=== PATIENT | male | born 1970 | race Caucasian/White ===

== ENCOUNTER 2017-11-30 12:15 | Outpatient (RCR) | payer BC, SELFPAY ==
[2017-11-19 10:55] LABS: Absolute Lymphocyte Count 2.17 X10^3/ul (0.83-4.51); Absolute Neutrophil Count 0.4 X10^3/uL (2.0-7.7); Eosinophil# 0.01 X10^3/uL; Eosinophils% 0.4 % (0-5); Hemoglobin 8.1 g/dl (13.0-16.5); Lymphocyte # 2.17 X10^3/ul (4.0); Lymphocyte % 82.5 % (19-41); Mean Corp Hgb Conc 35.2 g/gl (32-36); Mean Corpuscular Hgb 34.3 pg (27.0-32.0); Mean Corpuscular Volume 97.5 fL (80-94); Mean Platelet Vol. 7.4 fl (6.2-12.0); Monocyte# 0.07 X10^3/uL; Monocyte% 2.7 % (0-10); Neutrophil # 0.38 X10^3/uL (2.7-7.7); Neutrophil % 14.4 % (47-70); RBC Distribution Width CV 16.3 % (11.6-14.6); RBC Distribution Width SD 56.4 fl (35.1-43.9); Red Blood Count 2.36 M/mm3 (4.6-6.2); White Blood Count 2.6 K/mm3 (4.4-11.0)
[2017-11-19 10:56] LABS: Differential Indicated SCAN CRITERIA MET; POSITIVE COUNT YES; POSITIVE DIFFERENTIAL YES; POSITIVE MORPHOLOGY NO
[2017-11-19 11:06] LABS: Platelet Count 7 K/mm3 (150-450)
[2017-11-19 11:51] LABS: Differential Comment SCANNED
[2017-11-30 15:01] LABS: Absolute Lymphocyte Count 1.68 X10^3/ul (0.83-4.51); Absolute Neutrophil Count 0.2 X10^3/uL (2.0-7.7); Differential Indicated SCAN CRITERIA MET; Eosinophil# 0.01 X10^3/uL; Eosinophils% 0.5 % (0-5); Hematocrit 18.8 % (40-54); Hemoglobin 6.6 g/dl (13.0-16.5); Lymphocyte # 1.68 X10^3/ul (4.0); Lymphocyte % 88.4 % (19-41); Mean Corp Hgb Conc 35.1 g/gl (32-36); Mean Corpuscular Hgb 34.2 pg (27.0-32.0); Mean Corpuscular Volume 97.4 fL (80-94); Monocyte# 0.04 X10^3/uL; Monocyte% 2.1 % (0-10); Neutrophil # 0.17 X10^3/uL (2.7-7.7); POSITIVE COUNT YES; POSITIVE DIFFERENTIAL YES; POSITIVE MORPHOLOGY NO; Platelet Count 8 K/mm3 (150-450); RBC Distribution Width CV 15.2 % (11.6-14.6); RBC Distribution Width SD 50.6 fl (35.1-43.9); Red Blood Count 1.93 M/mm3 (4.6-6.2); White Blood Count 1.9 K/mm3 (4.4-11.0)
[2017-12-01 10:39] LABS: Pathologist Review Reviewed
== END 2017-11-30 12:16 | disposition home or self-care (01) ==
LOC: LAB 12:15
PROVIDERS: Family Provider Family Medicine; PCP Family Medicine
DX: D61.818 Other pancytopenia (principal); Z79.899 Other long term (current) drug therapy
CPT/HCPCS: 36415; 85025

== ENCOUNTER 2017-12-04 12:26 | Emergency (ER) | payer BC, SELFPAY ==
[2017-11-11 16:41] VITALS: BP 154/83
[2017-12-01 17:28] VITALS: BP 137/65
[2017-12-04] VITALS (7 sets, daily range): BP systolic 141–174; BP diastolic 88–101; PULSE 83–110; RESP 16–18; TEMP 36.3–36.8; O2SAT 96–98; BMI 33.9
[2017-12-04 13:07] LABS: Absolute Lymphocyte Count 1.74 X10^3/ul (0.83-4.51); Absolute Neutrophil Count 0.2 X10^3/uL (2.0-7.7); Hematocrit 24.1 % (40-54); Hemoglobin 8.7 g/dl (13.0-16.5); Lymphocyte # 1.74 X10^3/ul (4.0); Lymphocyte % 90.6 % (19-41); Mean Corp Hgb Conc 36.1 g/gl (32-36); Mean Corpuscular Hgb 32.3 pg (27.0-32.0); Mean Corpuscular Volume 89.6 fL (80-94); Mean Platelet Vol. 10.8 fl (6.2-12.0); Monocyte# 0.03 X10^3/uL; Monocyte% 1.6 % (0-10); Neutrophil # 0.15 X10^3/uL (2.7-7.7); Neutrophil % 7.8 % (47-70); RBC Distribution Width CV 16.9 % (11.6-14.6); RBC Distribution Width SD 54.1 fl (35.1-43.9); Red Blood Count 2.69 M/mm3 (4.6-6.2); White Blood Count 1.9 K/mm3 (4.4-11.0)
[2017-12-04 13:09] LABS: Differential Indicated SCAN CRITERIA MET; POSITIVE COUNT YES; POSITIVE DIFFERENTIAL YES; POSITIVE MORPHOLOGY NO; Platelet Count 10 K/mm3 (150-450)
[2017-12-04 13:55] LABS: Differential Comment SCAN; Platelet Estimate MKD DEC (ADEQ)
[2017-12-04] MEDS: AMOXICILLIN 500 MG CAPSULE PO (14:04)
[2017-12-04] MEDS: Mixture 30 ML Bottle 20 ML TOPICAL (14:05)
--- NOTE | 2017-12-04 15:19 | ED.RN ---
PT NOTIFIED AWAITING PLATELET ARRIVAL FROM ANOTHER HOSPITAL. MADE PT AWARE WAIT COULD TAKE ANOTHER TWO HRS OR SO FOR PLATELETS TO ARRIVE
--- NOTE | 2017-12-04 16:20 | ED.VISSUMM ---
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 He denies any hematuria, hematemesis, melena hematochezia. He denies bruising easily. He denies petechiae. He has never had a prior nosebleed. He has no other complaints and specifically headache, visual, ocular or auditory. Physical Examination: Patient's vitals are noted. He is a pleasant middle-aged gentleman in no distress. HEENT is remarkable for epistaxis right side. Uvula is midline. Posterior pharynx unremarkable. Trachea midline. There is no stridor. Heart is regular without murmur, gallop or rub. S1 and S2 are normal. Lungs are clear to auscultation with good movement of air bilaterally. Abdomen soft nontender. Patient does have petechial lower extremity; however, he has had petechia on prior exams. Test Results: White count is 1.9 thousand with an absolute neutrophil count of approximately 150. Hemoglobin is 8.7, which is baseline. Platelet count is 10,000 which is a drop from yesterday. Emergency Department Course and Treatment: Platelets were ordered. Patient was informed he would take 4-5 hours for arrival. The right naris was anesthetized with [place] solution. It was determined that he has an anterior nosebleed. A 5.5 cm anterior Rhino Rocket was placed with good hemostasis. At the time of this dictation 1620s had no bleeding since placement of the Rhino Rocket. He will receive amoxicillin in the department and a prescription for amoxicillin. He was referred to Dr. Bhardwaj for ENT. Treatment Plan: Platelet transfusion, Rhino Rocket to control epistaxis and referral to ENT Disposition: Discharged to home after transfusion of platelets Impression: 1. Epistaxis right acute 2. Pancytopenia with platelet count of 10,000 This note was generated with [employer] dictation software. It may contain incorrect words, spelling, and punctuation that were not noted in review of the chart prior to signing ED Disposition - Plan for ED Patient: Disposition: Home or Assisted Living Chief Complaint: Nosebleed Instructions: Nosebleed Prescriptions: Amoxicillin [Amoxil] 500 mg PO Q8H #14 cap Referrals: Ramon Calzada MD [Primary Care Provider] - Efrain Gr MD [STAFF PHYSICIAN] - 3-5 Days
--- NOTE | 2017-12-04 16:25 | ED.DCSUM_ITS ---
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 He denies any hematuria, hematemesis, melena hematochezia. He denies bruising easily. He denies petechiae. He has never had a prior nosebleed. He has no other complaints and specifically headache, visual, ocular or auditory. Physical Examination: Patient's vitals are noted. He is a pleasant middle-aged gentleman in no distress. HEENT is remarkable for epistaxis right side. Uvula is midline. Posterior pharynx unremarkable. Trachea midline. There is no stridor. Heart is regular without murmur, gallop or rub. S1 and S2 are normal. Lungs are clear to auscultation with good movement of air bilaterally. Abdomen soft nontender. Patient does have petechial lower extremity; however , he has had petechia on prior exams. Test Results: White count is 1.9 thousand with an absolute neutrophil count of approximately 150. Hemoglobin is 8.7, which is baseline. Platelet count is 10, 000 which is a drop from yesterday. Emergency Department Course and Treatment: Platelets were ordered. Patient was informed he would take 4-5 hours for arrival. The right naris was anesthetized with [place] solution. It was determined that he has an anterior nosebleed. A 5.5 cm anterior Rhino Rocket was placed with good hemostasis. At the time of this dictation 1620s had no bleeding since placement of the Rhino Rocket. He will receive amoxicillin in the department and a prescription for amoxicillin. He was referred to Dr. Bhardwaj for ENT. Treatment Plan: Platelet transfusion, Rhino Rocket to control epistaxis and referral to ENT Disposition: Discharged to home after transfusion of platelets Impression: 1. Epistaxis right acute 2. Pancytopenia with platelet count of 10,000 This note was generated with [employer] dictation software. It may contain incorrect words, spelling, and punctuation that were not noted in review of the chart prior to signing ED Disposition - Plan for ED Patient: Disposition: Home or Assisted Living Chief Complaint: Nosebleed Instructions: Nosebleed Prescriptions: Amoxicillin [Amoxil] 500 mg PO Q8H #14 cap Referrals: Ramon Calzada MD [Primary Care Provider] - Efrain Gr MD [STAFF PHYSICIAN] - 3-5 Days
[2017-12-04] MEDS: DiphenhydrAMINE 25 MG Capsule PO (17:04)
[2017-12-04] MEDS: Famotidine 20 MG Tablet PO (17:04)
[2017-12-06 15:07] LABS: Pathologist Review Reviewed
== END 2017-12-04 18:50 | disposition home or self-care (01) ==
PROVIDERS: Emergency Provider Emergency Medicine; Family Provider Family Medicine; PCP Family Medicine
DX: R04.0 Epistaxis (principal); D61.818 Other pancytopenia
CPT/HCPCS: 30901; 85025; 86900; 86965; 99284; P9037; A4216

== ENCOUNTER 2017-12-16 13:17 | Outpatient (RCR) | payer BC, SELFPAY ==
[2017-11-11 16:41] VITALS: BP 154/83
[2017-12-01 17:28] VITALS: BP 137/65
[2017-12-03 12:49] LABS: Absolute Lymphocyte Count 1.52 X10^3/ul (0.83-4.51); Absolute Neutrophil Count 0.2 X10^3/uL (2.0-7.7); Eosinophil# 0.01 X10^3/uL; Eosinophils% 0.6 % (0-5); Hematocrit 22.7 % (40-54); Lymphocyte # 1.52 X10^3/ul (4.0); Lymphocyte % 84.4 % (19-41); Mean Corp Hgb Conc 35.2 g/gl (32-36); Mean Corpuscular Hgb 32.3 pg (27.0-32.0); Mean Corpuscular Volume 91.5 fL (80-94); Mean Platelet Vol. 11.4 fl (6.2-12.0); Monocyte# 0.04 X10^3/uL; Monocyte% 2.2 % (0-10); Neutrophil # 0.23 X10^3/uL (2.7-7.7); Neutrophil % 12.8 % (47-70); RBC Distribution Width CV 16.8 % (11.6-14.6); RBC Distribution Width SD 53.4 fl (35.1-43.9); Red Blood Count 2.48 M/mm3 (4.6-6.2); White Blood Count 1.8 K/mm3 (4.4-11.0)
[2017-12-03 13:05] LABS: Differential Indicated SCAN CRITERIA MET; POSITIVE COUNT YES; POSITIVE DIFFERENTIAL YES; POSITIVE MORPHOLOGY NO; Platelet Count 16 K/mm3 (150-450)
[2017-12-03 13:28] LABS: Hypochromasia 2+; Platelet Estimate MKD DEC (ADEQ)
[2017-12-06 15:01] LABS: Pathologist Review Reviewed
[2017-12-06 16:32] LABS: Absolute Neutrophil Count 0.1 X10^3/uL (2.0-7.7); Eosinophil# 0.01 X10^3/uL; Eosinophils% 0.4 % (0-5); Hematocrit 22.3 % (40-54); Hemoglobin 7.9 g/dl (13.0-16.5); Lymphocyte % 90.5 % (19-41); Mean Corp Hgb Conc 35.4 g/gl (32-36); Mean Corpuscular Hgb 32.1 pg (27.0-32.0); Mean Corpuscular Volume 90.7 fL (80-94); Mean Platelet Vol. 9.3 fl (6.2-12.0); Monocyte# 0.08 X10^3/uL; Monocyte% 3.3 % (0-10); Neutrophil # 0.14 X10^3/uL (2.7-7.7); Neutrophil % 5.8 % (47-70); RBC Distribution Width CV 16.5 % (11.6-14.6); RBC Distribution Width SD 53.7 fl (35.1-43.9); Red Blood Count 2.46 M/mm3 (4.6-6.2); White Blood Count 2.4 K/mm3 (4.4-11.0)
[2017-12-06 16:35] LABS: Differential Indicated SCAN CRITERIA MET; POSITIVE COUNT YES; POSITIVE DIFFERENTIAL YES; POSITIVE MORPHOLOGY NO
[2017-12-06 16:43] LABS: Platelet Count 22 K/mm3 (150-450)
[2017-12-06 17:08] LABS: Differential Comment SCANNED
[2017-12-07 14:51] LABS: Pathologist Review Reviewed
[2017-12-08 11:19] LABS: Absolute Lymphocyte Count 1.77 X10^3/ul (0.83-4.51); Absolute Neutrophil Count 0.1 X10^3/uL (2.0-7.7); Eosinophil# 0.01 X10^3/uL; Eosinophils% 0.5 % (0-5); Hematocrit 20.4 % (40-54); Hemoglobin 7.1 g/dl (13.0-16.5); Lymphocyte # 1.77 X10^3/ul (4.0); Lymphocyte % 90.8 % (19-41); Mean Corp Hgb Conc 34.8 g/gl (32-36); Mean Corpuscular Hgb 32.1 pg (27.0-32.0); Mean Corpuscular Volume 92.3 fL (80-94); Mean Platelet Vol. 8.9 fl (6.2-12.0); Monocyte# 0.04 X10^3/uL; Monocyte% 2.1 % (0-10); Neutrophil # 0.13 X10^3/uL (2.7-7.7); Neutrophil % 6.6 % (47-70); Platelet Count 12 K/mm3 (150-450); RBC Distribution Width CV 15.7 % (11.6-14.6); Red Blood Count 2.21 M/mm3 (4.6-6.2)
[2017-12-08 11:46] LABS: Differential Indicated SCAN CRITERIA MET; POSITIVE COUNT YES; POSITIVE DIFFERENTIAL YES; POSITIVE MORPHOLOGY NO
[2017-12-08 11:48] LABS: Anisocytosis 1+; Platelet Estimate MOD DEC (ADEQ)
[2017-12-09 09:45] LABS: Pathologist Review Reviewed
[2017-12-11 10:42] LABS: Absolute Lymphocyte Count 1.25 X10^3/ul (0.83-4.51); Absolute Neutrophil Count 0.2 X10^3/uL (2.0-7.7); Eosinophil# 0.01 X10^3/uL; Eosinophils% 0.7 % (0-5); Hematocrit 24.1 % (40-54); Hemoglobin 8.5 g/dl (13.0-16.5); Lymphocyte # 1.25 X10^3/ul (4.0); Mean Corp Hgb Conc 35.3 g/gl (32-36); Mean Corpuscular Hgb 31.3 pg (27.0-32.0); Mean Corpuscular Volume 88.6 fL (80-94); Mean Platelet Vol. 8.9 fl (6.2-12.0); Monocyte# 0.03 X10^3/uL; Neutrophil # 0.18 X10^3/uL (2.7-7.7); Neutrophil % 12.3 % (47-70); Platelet Count 13 K/mm3 (150-450); RBC Distribution Width SD 50.1 fl (35.1-43.9); Red Blood Count 2.72 M/mm3 (4.6-6.2); White Blood Count 1.5 K/mm3 (4.4-11.0)
[2017-12-11 10:43] LABS: Differential Indicated SCAN CRITERIA MET; POSITIVE COUNT YES; POSITIVE DIFFERENTIAL YES; POSITIVE MORPHOLOGY NO
[2017-12-13 09:49] LABS: Absolute Lymphocyte Count 1.76 X10^3/ul (0.83-4.51); Absolute Neutrophil Count 0.1 X10^3/uL (2.0-7.7); Eosinophil# 0.01 X10^3/uL; Eosinophils% 0.5 % (0-5); Hematocrit 23.9 % (40-54); Hemoglobin 8.4 g/dl (13.0-16.5); Lymphocyte # 1.76 X10^3/ul (4.0); Lymphocyte % 94.6 % (19-41); Mean Corp Hgb Conc 35.1 g/gl (32-36); Mean Corpuscular Hgb 31.3 pg (27.0-32.0); Mean Corpuscular Volume 89.2 fL (80-94); Mean Platelet Vol. 8.6 fl (6.2-12.0); Monocyte# 0.04 X10^3/uL; Monocyte% 2.2 % (0-10); Neutrophil # 0.05 X10^3/uL (2.7-7.7); Neutrophil % 2.7 % (47-70); Platelet Count 6 K/mm3 (150-450); RBC Distribution Width CV 15.4 % (11.6-14.6); Red Blood Count 2.68 M/mm3 (4.6-6.2); White Blood Count 1.9 K/mm3 (4.4-11.0)
[2017-12-13 10:09] LABS: Differential Indicated SCAN CRITERIA MET; POSITIVE COUNT YES; POSITIVE DIFFERENTIAL YES; POSITIVE MORPHOLOGY NO
[2017-12-14 09:57] LABS: Pathologist Review Reviewed
[2017-12-14 10:07] LABS: Pathologist Review Reviewed
[2017-12-16 13:40] LABS: Absolute Neutrophil Count 0.1 X10^3/uL (2.0-7.7); Eosinophil# 0.01 X10^3/uL; Eosinophils% 0.4 % (0-5); Hematocrit 22.1 % (40-54); Hemoglobin 7.8 g/dl (13.0-16.5); Lymphocyte % 94.2 % (19-41); Mean Corp Hgb Conc 35.3 g/gl (32-36); Mean Corpuscular Hgb 31.6 pg (27.0-32.0); Mean Corpuscular Volume 89.5 fL (80-94); Monocyte# 0.03 X10^3/uL; Monocyte% 1.3 % (0-10); Neutrophil # 0.09 X10^3/uL (2.7-7.7); Neutrophil % 4.1 % (47-70); RBC Distribution Width CV 14.6 % (11.6-14.6); RBC Distribution Width SD 45.1 fl (35.1-43.9); Red Blood Count 2.47 M/mm3 (4.6-6.2); White Blood Count 2.2 K/mm3 (4.4-11.0)
[2017-12-16 13:58] LABS: POSITIVE COUNT YES; POSITIVE DIFFERENTIAL YES; POSITIVE MORPHOLOGY NO; Platelet Count 20 K/mm3 (150-450)
[2017-12-16 13:59] LABS: Differential Indicated SCAN CRITERIA MET
[2017-12-16 14:00] LABS: Differential Comment SCANNED
[2017-12-17 10:15] LABS: Pathologist Review Reviewed
== END 2017-12-16 14:00 | disposition home or self-care (01) ==
LOC: LAB 13:17
PROVIDERS: Family Provider Family Medicine; PCP Family Medicine
DX: D61.9 Aplastic anemia, unspecified (principal)
CPT/HCPCS: 36415; 85025; 86900

== ENCOUNTER 2018-01-28 04:44 | Emergency (ER) | payer BC, SELFPAY ==
[2018-01-28 04:45] VITALS: BP 170/88; PULSE 131; RESP 20; TEMP 37.2; O2SAT 97; BMI 31.1
--- NOTE | 2018-01-28 05:09 | EKG12_ITS ---
Test Reason : Blood Pressure : / mmHG Vent. Rate : 118 BPM Atrial Rate : 118 BPM P-R Int : 138 ms QRS Dur : 092 ms QT Int : 300 ms P-R-T Axes : 061 052 -37 degrees QTc Int : 420 ms Sinus tachycardia T wave abnormality, consider inferolateral ischemia Abnormal ECG Confirmed by IRAIS ESCOBAR, SHANTELL ([id number]), editor index GEOVANI HAMPTON ([id number]) on 01/31/2018 1:26:23 PM Referred By: TIFFANI Confirmed By:SHANTELL BRAXTON MD
--- NOTE | 2018-01-28 05:09 | CT_ITS ---
STUDY: CT ABDOMEN AND PELVIS WITH CONTRAST REASON FOR EXAM: Male, 47 years old. Abdominal pain shooting into the tailbone. Back pain. Recent diagnosis of aplastic anemia. Patient has had injections over the last 5 days. RADIATION DOSAGE (If Supplied By Facility): CTDIvol = ( 19.68 ) mGy, DLP = ( 1274.06 ) mGycm TECHNIQUE: Transaxial images were obtained from the dome of the diaphragm to the symphysis pubis without oral contrast. 100ML ml of Isovue 300 contrast was administered. Sagittal and coronal images were reconstructed. Individualized dose optimization techniques were used for this CT. COMPARISON: None. FINDINGS: The visualized lung bases are unremarkable. The visualized portions of the heart are within normal limits. As seen on axial images 49-52, there is a 1.7 cm low attenuation space occupying lesion in the right lobe of the liver. There is some peripheral puddling contrast enhancement and this most likely represents benign hemangioma. Normal gallbladder and extrahepatic biliary system. There is mild splenomegaly. Normal pancreas. Normal bilateral adrenal glands. Normal right kidney. Normal left kidney. Normal visualized stomach. Normal small intestine. A diverticulum is seen arising from the proximal transverse colon. Otherwise normal. Colon with no evidence for acute diverticulitis.. The appendix is visualized on axial images 70-79 and it appears normal.. There is atherosclerotic calcification of the abdominal aorta, without a demonstrated aneurysm. Normal inferior vena cava. Normal retroperitoneum. Normal urinary bladder. There is an umbilical hernia and there is a small right inguinal hernia which contains fat, but no bowel. There are multilevel degenerative changes of the visualized lumbar spine. CT/Abdomen/Pelvis W IV Cont ONLY IMPRESSION: Mild splenomegaly. Mild atherosclerosis. Minimal colonic diverticulosis, without evidence for acute diverticulitis. 1.7 cm hemangioma in the right lobe of the liver. No evidence for acute pathology. Electronically Signed: New Lay MD at 6:28 EDT , Service support ,
[2018-01-28] MEDS: 0.9% Normal Saline 1,000 ML 1000 ML IV (05:19)
[2018-01-28] MEDS: Ondansetron 4 MG/2 ML Vial IV ×2 (05:20→08:30)
[2018-01-28] MEDS: Morphine 4 MG/ML Syringe IV ×3 (05:21→08:30)
[2018-01-28 05:22] LABS: Absolute Lymphocyte Count 0.99 X10^3/ul (0.83-4.51); Basophil# 0.04 X10^3/uL; Basophil% 3.8 % (0-1); Hematocrit 22.3 % (40-54); Hemoglobin 7.9 g/dl (13.0-16.5); Lymphocyte # 0.99 X10^3/ul (4.0); Lymphocyte % 95.2 % (19-41); Mean Corp Hgb Conc 35.4 g/gl (32-36); Mean Corpuscular Hgb 30.6 pg (27.0-32.0); Mean Corpuscular Volume 86.4 fL (80-94); Mean Platelet Vol. 10.7 fl (6.2-12.0); Monocyte# 0.01 X10^3/uL; RBC Distribution Width CV 12.3 % (11.6-14.6); RBC Distribution Width SD 37.2 fl (35.1-43.9); Red Blood Count 2.58 M/mm3 (4.6-6.2)
[2018-01-28 05:23] LABS: Differential Indicated SCAN CRITERIA MET; POSITIVE COUNT YES; POSITIVE DIFFERENTIAL YES; POSITIVE MORPHOLOGY YES
[2018-01-28 05:24] LABS: Bacteria 0 SEEN /hpf (None Seen); Squamous Epithelial Cells - UA 0 SEEN /hpf (0-5)
[2018-01-28 05:24] LABS: International Normalized Ratio 1.1; Prothrombin Time (Protime)PT. 13.8 SECONDS (11.7-14.9)
[2018-01-28 05:25] LABS: Platelet Count 6 K/mm3 (150-450)
--- NOTE | 2018-01-28 05:26 | ED.RN ---
lab called with critical lab results. WBC 1.[address] Beyer made aware. no new orders at this time
[2018-01-28 05:27] LABS: Color, Urine Yellow (Yellow); Glucose, Dipstick Normal (Normal); Ketone-Dipstick 5 mg/dl (Negative); Leukocyte Esterase-Dipstick 25 /ul (Negative); Nitrite-Dipstick Negative (Negative); Occult Blood-Urine 25 /ul (Negative); Protein-Dipstick 30 mg/dl (Negative); Urine Clarity Sl. Cloudy (Clear); Urine Urobilinogen 4 mg/dl (Normal)
[2018-01-28 05:32] LABS: ALB/GLOB Ratio 0.7 RATIO (0.9-2.4); AST(SGOT) 12 U/L (15-37); Alanine Aminotransfer ALT/SGPT 62 U/L (16-61); Albumin, Serum 2.5 g/dL (3.2-5.0); Alkaline Phosphatase 62 U/L (45-117); Anion Gap 9 (5-15); BUN 17 mg/dL (7-18); BUN/Creat Ratio 27.3 RATIO (10-20); Calcium,Total 7.5 mg/dL (8.5-10.1); Chloride 102 mmol/L (98-107); Creatinine, Serum 0.62 mg/dL (0.70-1.30); EST Glomerular Filtration Rate 147 mL/min (>60); Est Glom Filt Rate - Afr Amer 177 mL/min (>60); Estimated Creatinine Clearance 161.67 ml/min; Globulin 3.5 g/dL (2.2-4.2); Glucose 124 mg/dL (74-106); Lipase 81 U/L (73-393); Potassium 3.7 mmol/L (3.5-5.1); Sodium Level 137 mmol/L (136-145)
--- NOTE | 2018-01-28 05:32 | RAD_ITS ---
STUDY: X-RAY CHEST REASON FOR EXAM: Male, 47 years old. Fever. History of aplastic anemia. TECHNIQUE: Frontal and lateral views of the chest. COMPARISON: 11/11/2017. FINDINGS: There is a right internal jugular central venous catheter with its tip overlying the superior vena cava. The lungs are clear and expanded. There is no demonstrated pleural abnormality. Normal size heart. Normal mediastinum and abdi. Normal visualized pulmonary arteries. Normal visualized aortic arch and descending thoracic aorta. There are mild degenerative changes of the visualized thoracic spine. Normal visualized ribs, clavicles, and shoulders. There is no demonstrated abnormality of the visualized soft tissue structures of the upper abdomen. RAD/Chest PA and Lateral IMPRESSION: Central line is in adequate position. No evidence for acute cardiopulmonary pathology. Electronically Signed: New Lay MD at 6:29 EDT , Service support ,
[2018-01-28 05:33] LABS: Hyaline Cast 0-5 SEEN /lpf (0-5); Mucous, Urine 3+ /hpf (<or=2+); Red Blood Cells-Urine 0-5 SEEN /hpf (0-5); Urine Bilirubin Dipstick 1 mg/dL (Negative); White Blood Cells 5-10 SEEN /hpf (0-5)
[2018-01-28 05:59] LABS: Differential Comment SCAN; Platelet Estimate MKD DEC (ADEQ)
--- NOTE | 2018-01-28 06:03 | ED.RN ---
lab called with critical lab results. lactic acid 2.0. Dr. Beyer made aware. no new orders at this time
--- NOTE | 2018-01-28 06:38 | ED.VISSUMM ---
- ER Visit Summary Date of Service: 01/28/18 Chief Complaint: Abdominal pain History of Present Illness: The patient is a 47 M with a history of aplastic anemia who presents with abdominal pain. He has been being treated at the [facility]. Last week he had ATG treatments for about 1 week. Today he began to develop some abdominal pain which is in the center of his abdomen and shoots towards his back and tailbone. He also had a fever of 101.7. He spoke to oncology and they were concerned about his fever and also the possibility of serum sickness so he was sent here to the emergency department for evaluation. Physical Examination: Heart rate 131 respiratory rate 20 afebrile Moist mucous membranes Heart regular rhythm tachycardia Lungs are clear Abdomen soft nondistended with diffuse nonfocal abdominal tenderness Test Results: EKG shows sinus rhythm at a rate of 118. He does have inferior and lateral T-wave inversions which are changed from prior. Chest x-ray shows no acute process. CT of the abdomen and pelvis shows no acute process. He is pancytopenic. Platelets 6. Absolute neutrophil count 0. Total bilirubin 1.1. Lactic 2.0. UA does show 5-10 WBCs. Emergency Department Course and Treatment: Patient has neutropenic fever. He was empirically treated with meropenem and vancomycin. He was given morphine for pain and Zofran for nausea. He will be transferred back to [facility] for further care. Treatment Plan: [] Disposition: Transfer Impression: Neutropenic fever Abdominal pain Aplastic anemia This note was generated with [employer] dictation software. It may contain incorrect words, spelling, and punctuation that were not noted in review of the chart prior to signing ED Disposition - Plan for ED Patient: Chief Complaint: Other, Pain/Inj Referrals: Ramon Calzada MD [Primary Care Provider] -
--- NOTE | 2018-01-28 06:41 | ED.DCSUM_ITS ---
- ER Visit Summary Date of Service: 01/28/18 Chief Complaint: Abdominal pain History of Present Illness: The patient is a 47 M with a history of aplastic anemia who presents with abdominal pain. He has been being treated at the [facility]. Last week he had ATG treatments for about 1 week. Today he began to develop some abdominal pain which is in the center of his abdomen and shoots towards his back and tailbone. He also had a fever of 101.7. He spoke to oncology and they were concerned about his fever and also the possibility of serum sickness so he was sent here to the emergency department for evaluation. Physical Examination: Heart rate 131 respiratory rate 20 afebrile Moist mucous membranes Heart regular rhythm tachycardia Lungs are clear Abdomen soft nondistended with diffuse nonfocal abdominal tenderness Test Results: EKG shows sinus rhythm at a rate of 118. He does have inferior and lateral T-wave inversions which are changed from prior. Chest x-ray shows no acute process. CT of the abdomen and pelvis shows no acute process. He is pancytopenic. Platelets 6. Absolute neutrophil count 0. Total bilirubin 1.1. Lactic 2.0. UA does show 5-10 WBCs. Emergency Department Course and Treatment: Patient has neutropenic fever. He was empirically treated with meropenem and vancomycin. He was given morphine for pain and Zofran for nausea. He will be transferred back to [facility] for further care. Treatment Plan: [] Disposition: Transfer Impression: Neutropenic fever Abdominal pain Aplastic anemia This note was generated with [employer] dictation software. It may contain incorrect words, spelling, and punctuation that were not noted in review of the chart prior to signing ED Disposition - Plan for ED Patient: Chief Complaint: Other, Pain/Inj Referrals: Ramon Calzada MD [Primary Care Provider] -
--- NOTE | 2018-01-28 06:42 | ED.RN ---
patient accepted to [facility] ER. Report called to transfer center. Pending transport at this time
[2018-01-28 06:57] VITALS: BP 147/89; PULSE 95; RESP 20; TEMP 39.3; O2SAT 94
--- NOTE | 2018-01-28 06:57 | NURSING ---
CALLED [facility] ETA AFTER 208
[2018-01-28 07:00] VITALS: BP 147/89; PULSE 95; RESP 20
[2018-01-28 07:36] VITALS: TEMP 38.6
[2018-01-28] MEDS: Acetaminophen 500 MG Tablet 1000 MG PO (07:36)
[2018-01-28 08:26] VITALS: BP 146/81; PULSE 122; RESP 18; TEMP 39.4; O2SAT 99
[2018-01-28 09:31] LABS: Reflex Lactate? Y
[2018-01-28 14:13] LABS: Pathologist Review Reviewed
== END 2018-01-28 08:36 | disposition short-term general hospital (02) ==
PROVIDERS: Emergency Provider Emergency Medicine; PCP Family Medicine
DX: D70.9 Neutropenia, unspecified (principal); R50.81 Fever presenting with conditions classified elsewhere; R10.9 Unspecified abdominal pain
CPT/HCPCS: 71046; 74177; 80053; 81001; 83605; 83690; 84484; 85025; 85610; 87040; 93005; 96365; 96366; 96367; 96375; 96376; 99283; J2185; J7030; Q9967; A4216; J2405

== ENCOUNTER 2018-02-14 15:58 | Outpatient (CLI) | payer BC, SELFPAY ==
[2018-02-14] MEDS: Acetaminophen 325 MG Tablet 650 MG PO (16:34)
[2018-02-14] MEDS: DiphenhydrAMINE 25 MG Capsule PO (16:34)
[2018-02-14 16:36] VITALS: BP 156/90; PULSE 112; RESP 16; TEMP 37; O2SAT 98
--- NOTE | 2018-02-14 17:03 | NURSING ---
BLOOD TRANSFUSION AND VITALS RECORDED UNDER [id number].
== END 2018-02-14 19:40 | disposition home or self-care (01) ==
LOC: MS3OUT 16:01 → MS3 16:03
PROVIDERS: Family Provider Family Medicine; PCP Family Medicine
DX: D61.9 Aplastic anemia, unspecified (principal)
CPT/HCPCS: 36430; J7040

== ENCOUNTER 2018-02-21 16:19 | Outpatient (CLI) | payer BC, SELFPAY ==
[2018-02-21] VITALS (12 sets, daily range): BP systolic 116–139; BP diastolic 68–85; PULSE 92–108; RESP 18–20; TEMP 36.6–37.2; O2SAT 93–97
[2018-02-21] MEDS: Acetaminophen 325 MG Tablet 650 MG PO (17:10)
[2018-02-21] MEDS: DiphenhydrAMINE 25 MG Capsule PO (17:10)
--- NOTE | 2018-02-21 17:31 | NURSING ---
had to wait nearly 1/2 hour for pharmacy to put pt in accudose for nurse to pull premeds
[2018-02-21] MEDS: 0.9% NaCl PICC Flush IV (23:19)
== END 2018-02-21 23:50 | disposition home or self-care (01) ==
LOC: MS3OUT 16:21 → MS3 16:21
PROVIDERS: Family Provider Family Medicine; PCP Family Medicine; Visit Provider Internal Medicine Hematology & Oncology
DX: D61.9 Aplastic anemia, unspecified (principal)
CPT/HCPCS: 36430; 86644; 86850; 86900; 86920; 86922; 86965; P9037; P9040; A4216

== ENCOUNTER 2018-12-29 08:16 | Day surgery (SDC) | payer BC, SELFPAY ==
[2018-12-21 09:17] VITALS: BMI 35.2
[2018-12-27 14:05] VITALS: BMI 36.2
--- NOTE | 2018-12-28 23:52 | HP.PCM_ITS ---
History and Physical Date of Admission: 12/29/18 HISTORY OF PRESENT ILLNESS 48 year old man presents for evaluation for TBSE. He has a concern about a lesion on his left occipital scalp that has increased in size over the last several months and has become more raised in configuration and has developed irregular borders. It has developed some scabbing and ulceration with intermittent bleeding when it is bumped. Patient is concerned about developing skin cancer since his immune system is compromised because of his being on Cyclosporine for aplastic anemia. He denies any fever. He denies any trauma. PAST MEDICAL HISTORY Aplastic anemia Pancytopenia Right hand fracture High blood pressure PAST SURGICAL HISTORY tonsillectomy ALLERGIES cefepime MEDICATIONS CycloSPORINE [Sandimmune] Eltrombopag Olamine [Promacta] amlodipine eltrombopag FAMILY HISTORY Grandmother - Diabetes Mother - Embolic stroke Father - Hypertension, Rheumatoid arthritis SOCIAL HISTORY Smoking Status: Never smoker alcohol intake: current substance use type: does not use REVIEW OF SYSTEMS General - Denies fever, fatigue, and weight loss. Eyes - Denies cataracts and glaucoma. ENT - Denies nasal congestion and sore throat. Endocrine - Denies excessive thirst and urination. Skin - Denies skin cancer. Has enlarging lesion left occipital scalp. Musculoskeletal - Denies joint pain, joint stiffness, weakness of muscles and joints and arthritis. Has back pain. Neuro - Denies headaches. Cardiovascular - Denies chest pain, fatigue, and shortness of breath with exertion. Psych - Denies anxiety and depression. Respiratory - Denies chronic cough and shortness of breath. Gastrointestinal - Denies nausea, vomiting, diarrhea, and constipation. Hematologic - Denies abnormal bruising and bleeding. Has aplastic anemia and is on Cyclosporine. Genitourinary - Denies hematuria and urinary frequency. PHYSICAL EXAMINATION General - Alert and Oriented. HEENT - PERRL. EOMI. Throat is clear. On the left occipital scalp is a 12 mm lesion lesion that is nodular and raised in configuration. Has irregular borders. Some scabbing and ulceration is present. Lesion is nontender. Neck - Supple and nontender. No cervical adenopathy. No suspicious lesions noted. Lungs - Clear to auscultation. Heart - Regular rate and rhythm. Abdomen - Soft and nondistended. Extremities - FROM. No axillary adenopathy. Radial pulses are palpable. No suspicious lesions noted. Neuro - CN II-XII grossly intact. Psych - Normal mood and affect. ASSESSMENT 1. 12 mm ulcerated lesion left occipital scalp. 2. Aplastic anemia. 3. Immunocompromised state due to drug therapy, Cyclosporine. PLAN Recommend excision of this lesion and send it to Pathology for analysis to rule out carcinoma. If carcinoma is present then further excision will be done with scalp skin flap or skin graft reconstruction. Surgery will be done under local anesthesia and IV sedation on an outpatient basis. Discussed with the patient that sometimes alopecia may occur in the area of the scarring after surgery. He voices understanding. Patient was informed of the risks and complications of the procedure including alternatives to surgery. These were discussed with the patient personally. Patient voices understanding and wishes to proceed. Some of the risks and complications were included in a form from the [employer].
--- NOTE | 2018-12-29 | LES_PTH ---
PATIENT: SHARRI BLANK [place] [facility] [id number] AGE/SX: 48/M ROOM: RE12/29/[address]: Dr. Efrain Dominguez MD : 1970 BED: DIS: 12/29/2018 SPEC #: [id number] RECD: 12/29/18 10:56 STATUS: BEENA ALLYN #: [id number] PAULINE: 12/29/18 00:[address]: Efrain Dominguez DEPT: SURGICAL PATHOLOGY RECD BY: Selam Thomas ENTERED: 12/29/18 12:18 SP TYPE: Lesion OTHR DR: MD Dr. Ramon Uriarte MD Tissues: A - Skin of scalp, NOS B - Skin of scalp, NOS Procedures: Frozen Section (charge) Surgery Specimen Level IV HEADER OPERATION: Excision lesion left occipital scalp, frozen section PRE-OP DIAGNOSIS: 12 mm ulcerated lesion left occipital scalp TISSUE SUBMITTED: A - 12 mm ulcerated lesion left occipital scalp sent for FS at 1054, B - Basal cell carcinoma left occipital scalp FROZEN SECTION DIAGNOSIS A. 12 mm ulcerated lesion occipital scalp, biopsy: Basal cell carcinoma. :francisco 12/29/18 Case has been reviewed in consultation with Dr. Olivarez who concurs with the above diagnosis. IDC:CE MICROSCOPIC DIAGNOSIS A. Skin lesion of occipital scalp, biopsy: Basal cell carcinoma, ulcerated, incompletely excised. See comment. B. Occipital scalp lesion, re-excision: Residual basal cell carcinoma. Ulcer consistent with recent biopsy and solar elastosis. See comment. AM:francisco 01/02/19 COMMENT A. The carcinoma measures 10 mm in greatest dimension and extends to the deep and focal peripheral margins of excision. The superficial portion of the tumor is ulcerated. B. The lesion measures 8 mm in greatest dimension and is completely excised in the planes examined. Case has been reviewed in consultation with Dr. Spicer who concurs with the above diagnosis. IDC:SJ MICROSCOPIC DESCRIPTION Slides are reviewed. GROSS DESCRIPTION A - Received fresh for frozen section diagnosis labeled with the patient's name is a specimen designated 12 mm ulcerated lesion left occipital scalp. The specimen consists of a piece of galo-white skin measuring 1.3 x 1.1 x 0.2 cm. The specimen is inked, serially sectioned and submitted entirely for frozen section diagnosis in one cassette. / MILTON:francisco 12/29/18 B - Received in fixative is one container labeled with the patient's name and designated basal cell carcinoma left occipital scalp. The specimen consists of a richy-shaped piece of galo-white skin measuring 2.5 x 2.5 cm and up to 1 cm in thickness. A suture is noted at one of the tips of the specimen presumed to be 12 o'clock. The specimen is inked as follows: 12 to 3 o'clock - black, 3 to 6 o'clock - blue, 6 to 9 o'clock - green and 9 to 12 o'clock - yellow. The skin surface shows a lesion measuring 1.2?x 1.5 cm. The specimen is serially sectioned and submitted entirely in four cassettes. Cassette 1 contains the 6 and 12 o'clock tip. / MILTON:francisco 12/30/18 TC:0 CPT: 09946 x2, 11104
[2018-12-29 08:52] VITALS: BP 145/92; PULSE 85; RESP 18; TEMP 37.2; O2SAT 97; BMI 35.0
[2018-12-29 09:39] LABS: AST(SGOT) 15 U/L (15-37); Alanine Aminotransfer ALT/SGPT 29 U/L (16-61); Albumin, Serum 3.9 g/dL (3.2-5.0); Alkaline Phosphatase 153 U/L (45-117); Cholesterol 186 mg/dL (200); Globulin 3.3 g/dL (2.2-4.2); High Density Lipoprotein 16 mg/dL; Protein, Total 7.2 g/dL (6.4-8.2); Triglycerides 299 mg/dL; Very Low Density Lipoprotein 60 mg/dL (5-40)
[2018-12-29] MEDS: Mupirocin Ointment 22gm Tube 1 APPLIC (11:27)
--- NOTE | 2018-12-29 11:44 | OP.PCM_ITS ---
Report of Operation Date of Procedure: 12/29/18 Pre-Operative Diagnosis: 1. 12 mm ulcerated lesion left occipital scalp. 2. Aplastic anemia. 3. Immunocompromised state due to drug therapy, Cyclosporine. Post-Operative Diagnosis: 1. 12 mm ulcerated basal cell carcinoma left occipital scalp. 2. Aplastic anemia. 3. Immunocompromised state due to drug therapy, Cyclosporine. Surgery/Procedure Performed:: Excision 12 mm ulcerated basal cell carcinoma left occipital scalp with rhomboid transposition scalp skin flap reconstruction (12.5 cm2). Description of Surgical Findings:: 48 year old man presents for evaluation for TBSE. He has a concern about a lesion on his left occipital scalp that has increased in size over the last several months and has become more raised in configuration and has developed irregular borders. It has developed some scabbing and ulceration with intermittent bleeding when it is bumped. Patient is concerned about developing skin cancer since his immune system is compromised because of his being on Cyclosporine for aplastic anemia. He denies any fever. He denies any trauma. The ulcerated lesion left occipital scalp was excised in an intradermal fashion and sent to Pathology as a frozen section. Frozen section showed a basal cell carcinoma. Size of defect left occipital scalp - 2.5 x 2.5 cm. Frozen section left occipital scalp - basal cell carcinoma. 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 Specimen's removed: 1. Ulcerated lesion left occipital scalp to Pathology as a frozen section. 2. Ulcerated basal cell carcinoma left occipital scalp to Pathology. Drains: None. Estimated Blood Loss (mL): 20 ml. Description of Procedure: Patient was taken to OR in supine position and was given IV sedation. The occipital scalp area was prepped and draped in the usual fashion. SCD's were placed for DVT prophylaxis. Perioperative antibiotics were given intravenously. The lesion left occipital scalp was infiltrated with xylocaine and epinephrine. After waiting 5 minutes for the anesthetic to take effect, the ulcerated lesion was excised in an intradermal fashion and sent to Pathology as a frozen section. Frozen section showed a basal cell carcinoma. Further excision was done with a full thickness excision with a 6 mm margin in all directions as I designed a rhomboid configuration. A suture was marked at the 12 oclock position for pathology orientation. It was sent to Pathology for analysis to rule out carcinoma at the margins. Hemostasis was obtained with electrocautery. A rhomboid flap was designed adjacent to the defect and the flap was elevated on a subcutaneous pedicle at the level of the underlying fascia. The rhomboid flap was easily transposed into the defect with minimal tension and minimal distortion. Hemostasis was obtained with electrocautery. The wound was irrigated with saline. The size of the defect after the excision was 2.5 x 2.5 cm. The size of the defect and the size of the flap needed to close the defect was 12.5 cm2. The wounds were closed in a layered fashion with 4-0 Monocryl interrupted sutures for the deep dermis and subcutaneous tissue. The skin was approximated with 4-0 Monocryl simple interrupted sutures. Antibiotic ointment was applied to the incision. Patient tolerated the procedure well and was sent to PACU in satisfactory condition. Patient will be sent home on antibiotics and pain medication. He will keep his head elevated during the initial postop period. He will be on a lifting restriction. Patient will followup in a week for a wound check and for discussion of the pathology report. Grafts/Implants Used: None. - Complications None. - Admit VTE Documentation VTE Present on Admission: No VTE Mechan Device Prophylaxis: SCD's VTE Pharm Prophylaxis ordered?: No Code Visit Surgery Charges CPT - 90733 ICD-10 - C44.41, Z79.899, D61.9
[2018-12-29 11:46] VITALS: BP 105/52; BP 145/92; PULSE 74; RESP 16; TEMP 36.6; O2SAT 95
[2018-12-29 11:50] VITALS: BP 107/57; BP 145/92; PULSE 70; RESP 18; O2SAT 100
--- NOTE | 2018-12-29 11:50 | DCINST_ITS ---
You will use the following diet at home:: No restrictions Discharge Activity: May not drive while taking narcotic pain medications., May Shower - in two days., - - keep head elevated. no heavy lifting. May shower in (days): 2 May resume sexual activity in: No Restrictions Weight Bearing Status: Weight bearing as tolerated Lifting Restrictions: 20 lbs. Keep extremity elevated above heart level: - - elevate head. Call your doctor if your incision/area has: Continuous Slow Oozing, Sudden Increased Bleeding, Increased Pain/ Swelling, Increased Redness, Foul Smelling Discharge, Swelling at the incision site Call your doctor if you observe: Fever of 101 or Higher, Coldness, Increased Pain, Shortness of breath, Chest pain, Calf discomfort, Uncontrolled pain Suture Line Care: - - apply antibiotic ointment to suture line daily. Cleanse incision/area with: - - may get incision wet in the shower in two days. Allergies/Adverse Reactions: Allergies cefepime Allergy (Verified 12/29/18 08:48) Unknown Medications to take at Discharge CycloSPORINE [Sandimmune] 175 mg PO BID 01/28/18 Eltrombopag Olamine [Promacta] 150 mg PO DAILY 01/28/18 amlodipine 10 mg tablet 5 mg PO DAILY 12/21/18 Clindamycin HCl [Cleocin] 300 mg PO TID #15 cap 12/29/18 Oxycodone HCl/Acetaminophen [Percocet 5/325] 1 tab PO 4X/DAY PRN PRN 7 Days #30 tab 12/29/18 The following prescriptions were given: Oxycodone HCl/Acetaminophen [Percocet 5/325] 1 tab PO 4X/DAY PRN PRN 7 Days #30 tab PRN Reason: Pain Clindamycin HCl [Cleocin] 300 mg PO TID #15 cap Primary Care Physician: Ramon Calzada MD [Primary Care Provider] - Test Results: Test results from this visit will be discussed in further detail at your follow- up appointment, if applicable. Please Follow Up With: Efrain Dominguez MD When: one week. call [phone] for appt. Proposed Discharge Date: 12/29/18
[2018-12-29 11:55] VITALS: BP 109/57; BP 145/92; PULSE 72; RESP 18; O2SAT 97
[2018-12-29 12:00] VITALS: BP 110/70; BP 145/92; PULSE 76; RESP 18; TEMP 36.8; O2SAT 94
[2018-12-29 13:03] VITALS: BP 145/92
== END 2018-12-29 13:05 | disposition home or self-care (01) ==
LOC: SDC 08:17 → AC 08:19
PROVIDERS: Internal Medicine Cardiovascular Disease; Family Provider Family Medicine; PCP Family Medicine; Referring Provider Surgery; Visit Provider Surgery
PROC: (CPT 14021; principal; 2018-12-29 10:05)
DX: C44.41 Basal cell carcinoma of skin of scalp and neck (principal); D61.9 Aplastic anemia, unspecified; T45.1X5A Adverse effect of antineoplastic and immunosuppressive drugs, initial encounter; Z79.899 Other long term (current) drug therapy; L57.8 Other skin changes due to chronic exposure to nonionizing radiation; I10 Essential (primary) hypertension; Z87.891 Personal history of nicotine dependence; Y92.9 Unspecified place or not applicable
CPT/HCPCS: 14021; 36415; 80061; 80076; 88305; 88331; J7120; J2405

== ENCOUNTER → 2019-01-13 14:52 | Outpatient (CLI) | payer BC, SELFPAY ==
[2018-12-29 08:52] VITALS: BMI 35.0
[2019-01-05 14:44] VITALS: BMI 35.0
--- NOTE | 2019-01-13 14:55 | ECHOD_ITS ---
Reason For Study: DYSPNEA/SOB Procedure This was a 2D Doppler, Color Flow transthoracic echocardiogram. The study was technically difficult. Due to body habitus. Exam performed in department. Left Ventricle Mild concentric left ventricular hypertrophy. The estimated ejection fraction is 65 %. Normal diastology for age. No regional wall motion abnormalities noted. Right Ventricle Moderately dilated right ventricle. Normal systolic function. Atria The left atrium is mildly enlarged. The right atrium is mildly enlarged. Normal atrial septum. Mitral Valve The mitral valve is structurally normal. No prolapse or stenosis seen. Tricuspid Valve Normal tricuspid valve. Trivial tricuspid valve insufficiency. Right ventricular systolic pressure estimated to be 30 mmHg. Aortic Valve Normal aortic valve. Trisinus/trileaflet aortic valve. Pulmonic Valve Normal pulmonic valve. Great Vessels Normal aortic root. Normal arch. Normal inferior vena cava. Inferior vena cava collapse with sniff. Pericardium/Pleural No pericardial effusion. MMode/2D Measurements & Calculations LVIDd: 4.6 cm IVSd: 1.4 cm Ao root diam: 3.6 cm LVIDs: 3.5 cm LVPWd: 1.2 cm RVDd: 4.3 cm FS: 25.2 % LAV(MOD-bp): 77.5 ml LA A4 area: 23.0 cm2 LA dimension(2D): 4.1 cm LAV(MOD-bp) Indexed: 32.5 ml/m2 LAV(MOD-sp2): 72.9 ml LAV(MOD-sp4): 72.9 ml RA A4 area: 22.3 cm2 Doppler Measurements & Calculations MV E max manish: 82.0 cm/sec Lat Peak E' Manish: 13.9 cm/sec Med Peak E' Manish: 9.0 cm/sec MV A max manish: 68.4 cm/sec E/E' lat: 5.9 E/E' med: 9.1 MV E/A: 1.2 Ao V2 max: 140.7 cm/sec LV V1 max: 112.3 cm/sec PA V2 max: 145.2 cm/sec Ao max P.9 mmHg LV V1 max P.0 mmHg TR max manish: 252.5 cm/sec TR max P.5 mmHg Interpretation Summary The estimated ejection fraction is 65 %. Normal diastology for age. Moderately dilated right ventricle. The left atrium is mildly enlarged. The right atrium is mildly enlarged. Trivial tricuspid valve insufficiency. Right ventricular systolic pressure estimated to be 30 mmHg. There is no comparison study available. Ordering Physician: James Desai Referring Physician: Ramon Calzada Performed By: Shu Alvarez, ROSE MARY, RVT
== END ==
PROVIDERS: Family Provider Family Medicine; PCP Family Medicine; Referring Provider Internal Medicine Cardiovascular Disease; Visit Provider Internal Medicine Cardiovascular Disease
DX: Z01.810 Encounter for preprocedural cardiovascular examination (principal); R00.0 Tachycardia, unspecified; R94.31 Abnormal electrocardiogram [ECG] [EKG]
CPT/HCPCS: 93306

== ENCOUNTER → 2019-01-16 09:42 | Outpatient (CLI) | payer BC, SELFPAY ==
[2018-12-29 08:52] VITALS: BMI 35.0
[2019-01-05 14:44] VITALS: BMI 35.0
--- NOTE | 2019-01-16 09:43 | STEWCON_ITS ---
Reason For Study: DYSPNEA/SOB Stress Results Protocol: Raul Protocol WITH DEFINITY Maximum Predicted HR: 172 bpm Target HR: 146 bpm % Maximum Predicted HR: 93 % DurationHeart Rate Stage (mm:ss) (bpm) BP Comment BASELINE 86 156/902 CC DEFINITY STAGE 1 3:00 127 198/90 STAGE 2 3:00 139 212/90SOB STAGE 3 2:30 160 230/881 CC DEFINITY RECOVERY 108 166/861 CC DEFINITY Stress Duration: 8:30 mm:ss Maximum Stress HR: 160 bpm Baseline Echocardiogram Findings The estimated ejection fraction is 65 %. Stress Echo Wall motion Data Resting WM Intermediate WM Stress WM Resting Wall Motion Wall Motion Stress No regional wall motion No regional wall motion abnormalities noted. abnormalities noted. EKG Data Normal intervals are noted. The patient exercised according to the regular Raul protocol for a total duration of 8:31. The maximum heart rate attained was 162 beats per minute. This was 94% of maximum predicted heart rate. The patient exercised into stage 3 of the Raul protocol. During stress, there were no ST or T wave changes noted to suggest ischemia. No clinical angina was noted. Interpretation Summary The estimated ejection fraction is 65 %. Normal, adequate, treadmill echocardiogram. Negative for ischemia by EKG and echocardiographic criteria. No anginal symptoms noted. No arrhythmias noted. Average exercise capacity for age. Hypertensive blood pressure response to exercise. Final LVEF is 75%. Decreased sensitivity due to poor echo windows. Test terminated due to target heart rate achieved and hypertensive blood pressure response to exercise. No complications. The study was technically difficult. Contrast injection was performed. Ordering Physician: James Desai MD Referring Physician: James Desai Performed By: Aashish San RCS
== END ==
PROVIDERS: Family Provider Family Medicine; PCP Family Medicine; Referring Provider Internal Medicine Cardiovascular Disease; Visit Provider Internal Medicine Cardiovascular Disease
DX: Z01.810 Encounter for preprocedural cardiovascular examination (principal); R94.31 Abnormal electrocardiogram [ECG] [EKG]; I10 Essential (primary) hypertension; R00.0 Tachycardia, unspecified; R06.02 Shortness of breath; R06.00 Dyspnea, unspecified
CPT/HCPCS: 93017; 93350; Q9957; A4216; C8928

== ENCOUNTER → 2019-12-07 09:52 | Outpatient (CLI) | payer BC, SELFPAY ==
[2019-09-07 13:45] VITALS: BMI 35.0
[2019-11-29 08:39] VITALS: BMI 35.0
[2019-12-07 10:22] LABS: Absolute Lymphocyte Count 1.53 X10^3/uL (0.83-4.51); Absolute Neutrophil Count 5.5 X10^3/uL (2.0-7.7); Basophil# 0.02 X10^3/uL; Basophil% 0.3 % (0-1); Eosinophil# 0.08 X10^3/uL; Hematocrit 42.3 % (40-54); Hemoglobin 14.7 g/dL (13.0-16.5); Lymphocyte # 1.53 X10^3/ul (4.0); Lymphocyte % 19.4 % (19-41); Mean Corp Hgb Conc 34.8 g/dL (32-36); Mean Corpuscular Hgb 33.2 pg (27.0-32.0); Mean Corpuscular Volume 95.5 fL (80-94); Mean Platelet Vol. 9.1 fl (6.2-12.0); Monocyte# 0.61 X10^3/uL; Monocyte% 7.7 % (0-10); NRBC Flagged by Analyzer 0 % (0-5); Neutrophil # 5.53 X10^3/uL (2.7-7.7); Neutrophil % 70.2 % (47-70); Platelet Count 199 K/mm3 (150-450); RBC Distribution Width CV 12.4 % (11.6-14.6); RBC Distribution Width SD 43.8 fl (35.1-43.9); Red Blood Count 4.43 M/mm3 (4.6-6.2); White Blood Count 7.9 K/mm3 (4.4-11.0)
[2019-12-07 10:39] LABS: Anion Gap 4 (5-15); BUN 15 mg/dL (7-18); BUN/Creat Ratio 14.4 RATIO (10-20); Calcium,Total 8.8 mg/dL (8.5-10.1); Chloride 109 mmol/L (98-107); Creatinine, Serum 1.04 mg/dL (0.70-1.30); EST Glomerular Filtration Rate 81 mL/min (>60); Est Glom Filt Rate - Afr Amer 97 mL/min (>60); Glucose 148 mg/dL (74-106); Potassium 4.3 mmol/L (3.5-5.1); Sodium Level 140 mmol/L (136-145)
== END ==
PROVIDERS: Family Provider Family Medicine; PCP Family Medicine
DX: D61.9 Aplastic anemia, unspecified (principal)
CPT/HCPCS: 36415; 80048; 85025

== ENCOUNTER 2020-02-02 12:19 | Outpatient (RCR) | payer BC, SELFPAY ==
[2019-11-29 08:39] VITALS: BMI 35.0
[2020-02-02 13:17] LABS: Absolute Lymphocyte Count 1.71 X10^3/uL (0.83-4.51); Absolute Neutrophil Count 5.4 X10^3/uL (2.0-7.7); Basophil# 0.03 X10^3/uL; Basophil% 0.4 % (0-1); Eosinophil# 0.05 X10^3/uL; Eosinophils% 0.6 % (0-5); Hematocrit 42.5 % (40-54); Hemoglobin 14.6 g/dL (13.0-16.5); Lymphocyte # 1.71 X10^3/ul (4.0); Mean Corp Hgb Conc 34.4 g/dL (32-36); Mean Corpuscular Hgb 33.2 pg (27.0-32.0); Mean Corpuscular Volume 96.6 fL (80-94); Mean Platelet Vol. 9.4 fl (6.2-12.0); Monocyte# 0.88 X10^3/uL; Monocyte% 10.8 % (0-10); NRBC Flagged by Analyzer 0 % (0-5); Neutrophil % 66.3 % (47-70); Platelet Count 202 K/mm3 (150-450); RBC Distribution Width SD 46.5 fl (35.1-43.9); White Blood Count 8.1 K/mm3 (4.4-11.0)
[2020-02-02 13:36] LABS: Anion Gap 5 (5-15); BUN 17 mg/dL (7-18); Calcium,Total 9.1 mg/dL (8.5-10.1); Chloride 105 mmol/L (98-107); EST Glomerular Filtration Rate 84 mL/min (>60); Est Glom Filt Rate - Afr Amer 102 mL/min (>60); Glucose 110 mg/dL (74-106); Potassium 4.2 mmol/L (3.5-5.1); Sodium Level 137 mmol/L (136-145)
== END 2020-02-29 18:00 | disposition home or self-care (01) ==
LOC: LAB 12:19
PROVIDERS: PCP Family Medicine
DX: D61.9 Aplastic anemia, unspecified (principal)
CPT/HCPCS: 36415; 80048; 85025

== ENCOUNTER → 2020-02-16 13:09 | Outpatient (CLI) | payer BC, SELFPAY ==
--- NOTE | 2020-02-16 | LES_PTH ---
PATIENT: SHARRI BLANK [facility] U#:[id number] AGE/SX: 55/M ROOM: RE02/16/[address]: Dr. Efrain Dominguez MD : 1970 BED: DIS: SPEC #: [id number] RECD: 02/16/20 13:20 STATUS: BEENA ALLYN #: [id number] PAULINE: 02/16/20 00:[address]: Efrain Dominguez DEPT: SURGICAL PATHOLOGY RECD BY: Angel Choi ENTERED: 02/16/20 13:21 SP TYPE: Lesion OTHR DR: Dr. Ramon Calzada MD Tissues: Skin of eyelid, NOS Procedures: Surgery Specimen Level IV HEADER OPERATION: Shave excision PRE-OP DIAGNOSIS: History of skin CA; enlarging lesion right upper cheek TISSUE SUBMITTED: Right upper cheek near lower eyelid MICROSCOPIC DIAGNOSIS Right upper check, near lower eyelid lesion, shave biopsy: Consistent with inflamed verrucous keratosis. See comment. MILTON:francisco 02/19/20 COMMENT The lesion is present at the deep margin of the specimen, If there is a residual lesion, complete excision is suggested, if clinically indicated. Please make reference to previous specimen ([id number]) skin lesion of occipital scalp, biopsy with diagnosis of basal cell carcinoma and occipital scalp lesion, re-excision with diagnosis of residual basal cell carcinoma. Case has been reviewed in consultation with Dr. Estrada who concurs with the above diagnosis. IDC:AM MICROSCOPIC DESCRIPTION Slides are reviewed. GROSS DESCRIPTION Received in fixative is one container labeled with the patient's name and designated right upper cheek. The specimen consists of a light galo shave biopsy of skin measuring 5 cm in diameter and 0.1 cm in thickness. The specimen is bisected and totally submitted in one cassette. / AM:francisco 02/16/20 TC:5 CPT: 96274
[2020-02-16 10:12] VITALS: BMI 35.0
== END ==
PROVIDERS: PCP Family Medicine; Referring Provider Surgery; Visit Provider Surgery
DX: D49.89 Neoplasm of unspecified behavior of other specified sites (principal); Z85.828 Personal history of other malignant neoplasm of skin
CPT/HCPCS: 88305

== ENCOUNTER 2020-03-01 13:09 | Outpatient (RCR) | payer BC, SELFPAY ==
[2020-02-16 10:12] VITALS: BMI 35.0
[2020-03-01 14:02] LABS: Absolute Lymphocyte Count 1.88 X10^3/uL (0.83-4.51); Absolute Neutrophil Count 5.8 X10^3/uL (2.0-7.7); Basophil# 0.02 X10^3/uL; Basophil% 0.2 % (0-1); Eosinophil# 0.08 X10^3/uL; Eosinophils% 0.9 % (0-5); Hematocrit 41.2 % (40-54); Hemoglobin 14.1 g/dL (13.0-16.5); Lymphocyte # 1.88 X10^3/ul (4.0); Lymphocyte % 20.7 % (19-41); Mean Corp Hgb Conc 34.2 g/dL (32-36); Mean Corpuscular Hgb 32.5 pg (27.0-32.0); Mean Corpuscular Volume 94.9 fL (80-94); Mean Platelet Vol. 9.4 fl (6.2-12.0); Monocyte# 1.15 X10^3/uL; Monocyte% 12.7 % (0-10); NRBC Flagged by Analyzer 0 % (0-5); Neutrophil # 5.84 X10^3/uL (2.7-7.7); Neutrophil % 64.2 % (47-70); Platelet Count 209 K/mm3 (150-450); RBC Distribution Width CV 13.2 % (11.6-14.6); Red Blood Count 4.34 M/mm3 (4.6-6.2); White Blood Count 9.1 K/mm3 (4.4-11.0)
[2020-03-01 14:26] LABS: Anion Gap 6 (5-15); BUN 16 mg/dL (7-18); BUN/Creat Ratio 17.8 RATIO (10-20); Calcium,Total 8.8 mg/dL (8.5-10.1); Chloride 107 mmol/L (98-107); EST Glomerular Filtration Rate 95 mL/min (>60); Est Glom Filt Rate - Afr Amer 115 mL/min (>60); Glucose 101 mg/dL (74-106); Potassium 4.1 mmol/L (3.5-5.1); Sodium Level 140 mmol/L (136-145)
== END 2020-03-01 18:00 | disposition home or self-care (01) ==
LOC: LAB 13:09
PROVIDERS: PCP Family Medicine
DX: D61.9 Aplastic anemia, unspecified (principal)
CPT/HCPCS: 36415; 80048; 85025

== ENCOUNTER 2020-04-05 13:35 | Outpatient (RCR) | payer BC, SELFPAY ==
[2020-02-16 10:12] VITALS: BMI 35.0
[2020-04-05 13:58] LABS: Absolute Lymphocyte Count 1.37 X10^3/uL (0.83-4.51); Absolute Neutrophil Count 5.2 X10^3/uL (2.0-7.7); Basophil# 0.02 X10^3/uL; Basophil% 0.3 % (0-1); Eosinophils% 1.3 % (0-5); Hemoglobin 13.3 g/dL (13.0-16.5); Lymphocyte # 1.37 X10^3/ul (4.0); Lymphocyte % 18.3 % (19-41); Mean Corpuscular Hgb 34.3 pg (27.0-32.0); Mean Corpuscular Volume 97.9 fL (80-94); Monocyte# 0.77 X10^3/uL; Monocyte% 10.3 % (0-10); NRBC Flagged by Analyzer 0 % (0-5); Neutrophil # 5.18 X10^3/uL (2.7-7.7); Neutrophil % 69.1 % (47-70); Platelet Count 195 K/mm3 (150-450); RBC Distribution Width CV 13.2 % (11.6-14.6); RBC Distribution Width SD 47.2 fl (35.1-43.9); Red Blood Count 3.88 M/mm3 (4.6-6.2); White Blood Count 7.5 K/mm3 (4.4-11.0)
[2020-04-05 14:09] LABS: Anion Gap 4 (5-15); BUN 19 mg/dL (7-18); BUN/Creat Ratio 19.9 RATIO (10-20); Calcium,Total 8.5 mg/dL (8.5-10.1); Chloride 108 mmol/L (98-107); Creatinine, Serum 0.96 mg/dL (0.70-1.30); EST Glomerular Filtration Rate 89 mL/min (>60); Est Glom Filt Rate - Afr Amer 107 mL/min (>60); Glucose 107 mg/dL (74-106); Potassium 4.1 mmol/L (3.5-5.1); Sodium Level 140 mmol/L (136-145)
== END 2020-04-05 18:00 | disposition home or self-care (01) ==
LOC: LAB 13:35
PROVIDERS: PCP Family Medicine
DX: D61.9 Aplastic anemia, unspecified (principal)
CPT/HCPCS: 36415; 80048; 85025

== ENCOUNTER 2020-05-10 11:55 | Outpatient (RCR) | payer MEDICARE, SELFPAY ==
[2020-02-16 10:12] VITALS: BMI 35.0
[2020-05-10 13:20] LABS: Absolute Lymphocyte Count 1.74 X10^3/uL (0.83-4.51); Absolute Neutrophil Count 4.9 X10^3/uL (2.0-7.7); Basophil# 0.02 X10^3/uL; Basophil% 0.3 % (0-1); Eosinophil# 0.14 X10^3/uL; Eosinophils% 1.8 % (0-5); Hematocrit 40.4 % (40-54); Hemoglobin 13.7 g/dL (13.0-16.5); Lymphocyte # 1.74 X10^3/ul (4.0); Lymphocyte % 22.5 % (19-41); Mean Corp Hgb Conc 33.9 g/dL (32-36); Mean Corpuscular Hgb 33.6 pg (27.0-32.0); Mean Platelet Vol. 9.3 fl (6.2-12.0); Monocyte# 0.93 X10^3/uL; NRBC Flagged by Analyzer 0 % (0-5); Neutrophil # 4.85 X10^3/uL (2.7-7.7); Neutrophil % 62.8 % (47-70); Platelet Count 200 K/mm3 (150-450); RBC Distribution Width CV 13.2 % (11.6-14.6); RBC Distribution Width SD 46.7 fl (35.1-43.9); Red Blood Count 4.08 M/mm3 (4.6-6.2); White Blood Count 7.7 K/mm3 (4.4-11.0)
[2020-05-10 13:44] LABS: Anion Gap 6 (5-15); BUN 22 mg/dL (7-18); BUN/Creat Ratio 23.9 RATIO (10-20); Calcium,Total 8.8 mg/dL (8.5-10.1); Chloride 107 mmol/L (98-107); Creatinine, Serum 0.92 mg/dL (0.70-1.30); EST Glomerular Filtration Rate 92 mL/min (>60); Est Glom Filt Rate - Afr Amer 112 mL/min (>60); Glucose 122 mg/dL (74-106); Potassium 4.2 mmol/L (3.5-5.1); Sodium Level 138 mmol/L (136-145)
== END 2020-05-10 18:00 | disposition home or self-care (01) ==
LOC: LAB 11:55
PROVIDERS: PCP Family Medicine
DX: D61.9 Aplastic anemia, unspecified (principal)
CPT/HCPCS: 36415; 80048; 85025

== ENCOUNTER 2020-07-05 10:35 | Outpatient (RCR) | payer MEDICARE, SELFPAY ==
[2020-05-28 09:13] VITALS: BMI 36.8
[2020-07-05 11:48] LABS: Absolute Lymphocyte Count 1.45 X10^3/uL (0.83-4.51); Absolute Neutrophil Count 6.6 X10^3/uL (2.0-7.7); Basophil# 0.01 X10^3/uL; Basophil% 0.1 % (0-1); Eosinophil# 0.16 X10^3/uL; Eosinophils% 1.7 % (0-5); Hematocrit 41.7 % (40-54); Hemoglobin 14.1 g/dL (13.0-16.5); Lymphocyte # 1.45 X10^3/ul (4.0); Lymphocyte % 15.8 % (19-41); Mean Corp Hgb Conc 33.8 g/dL (32-36); Mean Corpuscular Hgb 32.8 pg (27.0-32.0); Mean Platelet Vol. 9.4 fl (6.2-12.0); Monocyte# 0.91 X10^3/uL; Monocyte% 9.9 % (0-10); NRBC Flagged by Analyzer 0 % (0-5); Platelet Count 188 K/mm3 (150-450); RBC Distribution Width CV 13.1 % (11.6-14.6); RBC Distribution Width SD 46.9 fl (35.1-43.9); White Blood Count 9.2 K/mm3 (4.4-11.0)
[2020-07-05 12:22] LABS: Anion Gap 7 (5-15); BUN 21 mg/dL (7-18); BUN/Creat Ratio 23.6 RATIO (10-20); Calcium,Total 8.8 mg/dL (8.5-10.1); Chloride 106 mmol/L (98-107); Creatinine, Serum 0.89 mg/dL (0.70-1.30); EST Glomerular Filtration Rate 96 mL/min (>60); Est Glom Filt Rate - Afr Amer 117 mL/min (>60); Glucose 107 mg/dL (74-106); Potassium 4.3 mmol/L (3.5-5.1); Sodium Level 139 mmol/L (136-145)
== END 2020-07-05 18:00 | disposition home or self-care (01) ==
LOC: LAB 10:35
PROVIDERS: PCP Family Medicine
DX: D61.9 Aplastic anemia, unspecified (principal)
CPT/HCPCS: 36415; 80048; 85025

== ENCOUNTER → 2020-07-17 13:42 | Outpatient (CLI) | payer MEDICARE, SELFPAY ==
[2020-05-28 09:13] VITALS: BMI 36.8
--- NOTE | 2020-07-17 13:52 | RAD_ITS ---
STUDY: X-RAY - PELVIS AND LEFT HIP REASON FOR EXAM: Male, 50 years old. Pain, sciatica TECHNIQUE: 3 views of the pelvis and hip. COMPARISON: None. FINDINGS: There is a non-specific bowel gas pattern. Normal visualized soft tissue structures. Normal bilateral iliac wings, sacroiliac joints and visualized sacrum. Normal bilateral superior and inferior pubic rami. Normal pubic symphysis. Normal bilateral ischial tuberosities. Deformity of the femoral head with possible subchondral cystic changes. Avascular necrosis should be ruled out. Normal acetabulum. There is moderate articular joint space narrowing of the hip. 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 Avascular necrosis should be ruled out. Electronically Signed: Arthur Ludwig, at 15:30 EDT , Service support ,
--- NOTE | 2020-07-17 13:52 | RAD_ITS ---
STUDY: X-RAY - LUMBAR SPINE REASON FOR EXAM: Male, 50 years old. Pain TECHNIQUE: 3 view(s) of the lumbar spine were obtained. COMPARISON: None FINDINGS: Normal lumbar lordosis. There is no substantial scoliosis. There is a normal alignment of the vertebrae. There is multilevel endplate spondylosis of the lumbar vertebrae. There is multi-level degenerative disc disease with multi-level disc space narrowing. There is atherosclerotic calcification of the abdominal aorta without a demonstrated aneurysm. RAD/Lumbar Spine 2 or 3 Views IMPRESSION: Degenerative changes of the spine, as detailed above. Electronically Signed: Arthur Ludwig, at 15:32 EDT , Service support ,
== END ==
PROVIDERS: PCP Family Medicine; Referring Provider Anesthesiology Pain Medicine; Visit Provider Anesthesiology Pain Medicine
DX: M54.9 Dorsalgia, unspecified (principal); M25.559 Pain in unspecified hip
CPT/HCPCS: 72100; 73502

== ENCOUNTER 2020-08-06 11:29 | Outpatient (RCR) | payer MEDICARE, SELFPAY ==
[2020-05-28 09:13] VITALS: BMI 36.8
[2020-08-06 12:11] LABS: Hemoglobin 13.9 g/dL (13.0-16.5); Mean Corp Hgb Conc 33.9 g/dL (32-36); Mean Corpuscular Hgb 33.2 pg (27.0-32.0); Mean Corpuscular Volume 97.9 fL (80-94); Mean Platelet Vol. 9.3 fl (6.2-12.0); Platelet Count 168 K/mm3 (150-450); RBC Distribution Width CV 13.1 % (11.6-14.6); RBC Distribution Width SD 46.5 fl (35.1-43.9); Red Blood Count 4.19 M/mm3 (4.6-6.2); White Blood Count 7.5 K/mm3 (4.4-11.0)
[2020-08-06 12:56] LABS: Anion Gap 4 (5-15); BUN 12 mg/dL (7-18); Calcium,Total 8.7 mg/dL (8.5-10.1); Chloride 106 mmol/L (98-107); Creatinine, Serum 0.92 mg/dL (0.70-1.30); EST Glomerular Filtration Rate 93 mL/min (>60); Est Glom Filt Rate - Afr Amer 112 mL/min (>60); Glucose 132 mg/dL (74-106); Potassium 3.7 mmol/L (3.5-5.1); Sodium Level 137 mmol/L (136-145)
== END 2020-08-06 18:00 | disposition home or self-care (01) ==
LOC: LAB 11:29
PROVIDERS: PCP Family Medicine
DX: D61.9 Aplastic anemia, unspecified (principal)
CPT/HCPCS: 36415; 80048; 85027

== ENCOUNTER → 2020-08-08 07:00 | Outpatient (CLI) | payer MEDICARE, SELFPAY ==
[2020-05-28 09:13] VITALS: BMI 36.8
[2020-08-06 12:13] VITALS: BMI 36.8
--- NOTE | 2020-08-08 07:06 | RAD_ITS ---
STUDY: X-RAY - ORBITS REASON FOR EXAM: Male, 50 years old. clearance for MRI TECHNIQUE: 2 view(s) of the orbits were obtained. COMPARISON: None. FINDINGS: Normal bilateral orbits without a metallic orbital foreign body. Normal visualized facial bones. Normal paranasal sinuses. The soft tissue structures are unremarkable. RAD/Orbits for Foreign Body IMPRESSION: No demonstrated metallic orbital foreign body. The patient is cleared for an MRI examination. Electronically Signed: Saúl Figueroa, at 7:26 EDT Tel , Service support ,
--- NOTE | 2020-08-08 07:20 | MRI_ITS ---
STUDY: MRI LUMBAR SPINE WITHOUT CONTRAST REASON FOR EXAM: Male, 50 years old. back pain, left groin/thigh pain TECHNIQUE: Standardized fat and water weighted pulse sequences were obtained in the sagittal and axial planes. COMPARISON: None FINDINGS: T12-L1: Normal endplates. Normal disc height, hydration and morphology. Normal bilateral facet joints. Normal central canal and bilateral lateral recesses. Normal bilateral intervertebral neural foramina. Normal lumbar lordosis. There is no substantial scoliosis. Normal conus medullaris that terminates at the L1 level. L1-2: Normal endplates. Small right para midline disc herniation. Normal bilateral facet joints. Degenerative changes of the bilateral facet joints. Mild narrowing of the central canal and bilateral intervertebral neural foramina. L2-3: Normal endplates. Small right para midline disc herniation. Degenerative changes of the bilateral facet joints. Mild narrowing of the central canal and bilateral intervertebral neural foramina. L3-4: Normal endplates. Small right foraminal disc herniation impinging on the right L3 nerve root. Degenerative changes of the bilateral facet joints. Mild narrowing of the central canal and bilateral intervertebral neural foramina. L4-5: Normal endplates. Left para midline and left foraminal disc herniation impinging on the left L5 and left L4 nerve roots. Degenerative changes of the bilateral facet joints. Mild narrowing of the central canal and bilateral intervertebral neural foramina. L5-S1: Normal endplates. Left para midline and left foraminal disc herniation migrating upward 10 mm impinging on the left L5 nerve root. Degenerative changes of the bilateral facet joints. Mild narrowing of the central canal and bilateral intervertebral neural foramina. Normal visualized sacral ala. Normal visualized paraspinous soft tissue structures. MRI/Spine Lumbar (Routine) IMPRESSION: Multilevel degenerative changes, as described above. Electronically Signed: Carlos Lewis, at 15:35 EDT Tel , Service support ,
== END ==
PROVIDERS: PCP Family Medicine; Referring Provider Anesthesiology Pain Medicine; Visit Provider Anesthesiology Pain Medicine
DX: M54.9 Dorsalgia, unspecified (principal); M79.605 Pain in left leg
CPT/HCPCS: 70030; 72148

== ENCOUNTER 2020-09-07 11:24 | Outpatient (RCR) | payer MEDICARE, SELFPAY ==
[2020-08-06 12:13] VITALS: BMI 36.8
[2020-09-07 12:02] LABS: Absolute Lymphocyte Count 1.59 X10^3/uL (0.83-4.51); Absolute Neutrophil Count 4.7 X10^3/uL (2.0-7.7); Basophil# 0.01 X10^3/uL; Basophil% 0.1 % (0-1); Eosinophils% 1.4 % (0-5); Hemoglobin 14.9 g/dL (13.0-16.5); Lymphocyte # 1.59 X10^3/ul (4.0); Lymphocyte % 22.1 % (19-41); Mean Corp Hgb Conc 33.9 g/dL (32-36); Mean Corpuscular Hgb 33.1 pg (27.0-32.0); Mean Corpuscular Volume 97.8 fL (80-94); Mean Platelet Vol. 9.4 fl (6.2-12.0); Monocyte# 0.75 X10^3/uL; Monocyte% 10.4 % (0-10); NRBC Flagged by Analyzer 0 % (0-5); Neutrophil % 65.2 % (47-70); Platelet Count 136 K/mm3 (150-450); RBC Distribution Width CV 13.1 % (11.6-14.6); RBC Distribution Width SD 46.9 fl (35.1-43.9); White Blood Count 7.2 K/mm3 (4.4-11.0)
[2020-09-07 12:26] LABS: Anion Gap 6 (5-15); BUN 17 mg/dL (7-18); BUN/Creat Ratio 18.2 RATIO (10-20); Calcium,Total 8.7 mg/dL (8.5-10.1); Chloride 106 mmol/L (98-107); Creatinine, Serum 0.93 mg/dL (0.70-1.30); EST Glomerular Filtration Rate 91 mL/min (>60); Est Glom Filt Rate - Afr Amer 110 mL/min (>60); Glucose 119 mg/dL (74-106); Potassium 3.9 mmol/L (3.5-5.1); Sodium Level 138 mmol/L (136-145)
== END 2020-09-07 18:00 | disposition home or self-care (01) ==
LOC: LAB 11:24
PROVIDERS: PCP Family Medicine
DX: D61.9 Aplastic anemia, unspecified (principal)
CPT/HCPCS: 36415; 80048; 85025

== ENCOUNTER 2020-10-08 09:34 | Outpatient (RCR) | payer MEDICARE, SELFPAY ==
[2020-08-06 12:13] VITALS: BMI 36.8
[2020-10-08 10:07] LABS: Absolute Lymphocyte Count 1.35 X10^3/uL (0.83-4.51); Absolute Neutrophil Count 4.2 X10^3/uL (2.0-7.7); Basophil# 0.02 X10^3/uL; Basophil% 0.3 % (0-1); Eosinophil# 0.11 X10^3/uL; Eosinophils% 1.7 % (0-5); Hemoglobin 14.5 g/dL (13.0-16.5); Lymphocyte # 1.35 X10^3/ul (4.0); Lymphocyte % 20.5 % (19-41); Mean Corp Hgb Conc 34.5 g/dL (32-36); Mean Corpuscular Hgb 33.8 pg (27.0-32.0); Mean Corpuscular Volume 97.9 fL (80-94); Mean Platelet Vol. 9.5 fl (6.2-12.0); Monocyte# 0.81 X10^3/uL; Monocyte% 12.3 % (0-10); NRBC Flagged by Analyzer 0 % (0-5); Neutrophil # 4.21 X10^3/uL (2.7-7.7); Neutrophil % 64.1 % (47-70); Platelet Count 111 K/mm3 (150-450); RBC Distribution Width SD 50.5 fl (35.1-43.9); Red Blood Count 4.29 M/mm3 (4.6-6.2); White Blood Count 6.6 K/mm3 (4.4-11.0)
[2020-10-08 10:41] LABS: Anion Gap 6 (5-15); BUN 16 mg/dL (7-18); BUN/Creat Ratio 18.1 RATIO (10-20); Calcium,Total 8.5 mg/dL (8.5-10.1); Chloride 108 mmol/L (98-107); Creatinine, Serum 0.88 mg/dL (0.70-1.30); EST Glomerular Filtration Rate 97 mL/min (>60); Est Glom Filt Rate - Afr Amer 117 mL/min (>60); Glucose 107 mg/dL (74-106); Potassium 4.2 mmol/L (3.5-5.1); Sodium Level 139 mmol/L (136-145)
== END 2020-10-08 18:00 | disposition home or self-care (01) ==
LOC: LAB 09:34
PROVIDERS: PCP Family Medicine
DX: D61.9 Aplastic anemia, unspecified (principal)
CPT/HCPCS: 36415; 80048; 85025

== ENCOUNTER 2020-11-07 14:07 | Outpatient (RCR) | payer MEDICARE, SELFPAY ==
[2020-08-06 12:13] VITALS: BMI 36.8
[2020-11-07 14:46] LABS: Absolute Lymphocyte Count 1.98 X10^3/uL (0.83-4.51); Absolute Neutrophil Count 5.7 X10^3/uL (2.0-7.7); Basophil# 0.02 X10^3/uL; Basophil% 0.2 % (0-1); Eosinophil# 0.06 X10^3/uL; Eosinophils% 0.7 % (0-5); Hematocrit 42.6 % (40-54); Hemoglobin 15.1 g/dL (13.0-16.5); Lymphocyte # 1.98 X10^3/ul (4.0); Lymphocyte % 23.4 % (19-41); Mean Corp Hgb Conc 35.4 g/dL (32-36); Mean Corpuscular Hgb 34.2 pg (27.0-32.0); Mean Corpuscular Volume 96.6 fL (80-94); Mean Platelet Vol. 9.7 fl (6.2-12.0); Monocyte# 0.67 X10^3/uL; Monocyte% 7.9 % (0-10); NRBC Flagged by Analyzer 0 % (0-5); Neutrophil # 5.68 X10^3/uL (2.7-7.7); Neutrophil % 67.1 % (47-70); Platelet Count 104 K/mm3 (150-450); RBC Distribution Width CV 13.3 % (11.6-14.6); RBC Distribution Width SD 47.7 fl (35.1-43.9); Red Blood Count 4.41 M/mm3 (4.6-6.2); White Blood Count 8.5 K/mm3 (4.4-11.0)
[2020-11-07 15:13] LABS: Anion Gap 6 (5-15); BUN 17 mg/dL (7-18); BUN/Creat Ratio 16.3 RATIO (10-20); Chloride 104 mmol/L (98-107); Creatinine, Serum 1.04 mg/dL (0.70-1.30); EST Glomerular Filtration Rate 80 mL/min (>60); Est Glom Filt Rate - Afr Amer 97 mL/min (>60); Glucose 130 mg/dL (74-106); Sodium Level 136 mmol/L (136-145)
== END 2020-11-07 18:00 | disposition home or self-care (01) ==
LOC: LAB 14:07
PROVIDERS: PCP Family Medicine
DX: D61.9 Aplastic anemia, unspecified (principal)
CPT/HCPCS: 36415; 80048; 85025

== ENCOUNTER 2020-12-02 09:44 | Outpatient (RCR) | payer MEDICARE, SELFPAY ==
[2020-08-06 12:13] VITALS: BMI 36.8
[2020-12-02 09:00] VITALS: BMI 37.6
[2020-12-02 10:09] LABS: Absolute Lymphocyte Count 2.19 X10^3/uL (0.83-4.51); Absolute Neutrophil Count 7.3 X10^3/uL (2.0-7.7); Basophil# 0.02 X10^3/uL; Basophil% 0.2 % (0-1); Eosinophil# 0.13 X10^3/uL; Eosinophils% 1.2 % (0-5); Hematocrit 42.1 % (40-54); Lymphocyte # 2.19 X10^3/ul (4.0); Lymphocyte % 19.5 % (19-41); Mean Corp Hgb Conc 33.3 g/dL (32-36); Mean Corpuscular Hgb 33.1 pg (27.0-32.0); Mean Corpuscular Volume 99.5 fL (80-94); Mean Platelet Vol. 9.5 fl (6.2-12.0); Monocyte# 1.41 X10^3/uL; Monocyte% 12.6 % (0-10); NRBC Flagged by Analyzer 0 % (0-5); Neutrophil # 7.33 X10^3/uL (2.7-7.7); Neutrophil % 65.3 % (47-70); Platelet Count 106 K/mm3 (150-450); RBC Distribution Width CV 13.9 % (11.6-14.6); RBC Distribution Width SD 50.2 fl (35.1-43.9); Red Blood Count 4.23 M/mm3 (4.6-6.2); White Blood Count 11.2 K/mm3 (4.4-11.0)
[2020-12-02 10:30] LABS: Anion Gap 7 (5-15); BUN 23 mg/dL (7-18); Calcium,Total 8.8 mg/dL (8.5-10.1); Chloride 107 mmol/L (98-107); Creatinine, Serum 0.96 mg/dL (0.70-1.30); EST Glomerular Filtration Rate 88 mL/min (>60); Est Glom Filt Rate - Afr Amer 107 mL/min (>60); Glucose 107 mg/dL (74-106); Potassium 4.3 mmol/L (3.5-5.1); Sodium Level 138 mmol/L (136-145)
== END 2020-12-02 18:00 | disposition home or self-care (01) ==
LOC: LAB 09:44
PROVIDERS: PCP Family Medicine
DX: D61.9 Aplastic anemia, unspecified (principal)
CPT/HCPCS: 36415; 80048; 85025

== ENCOUNTER → 2020-12-17 07:09 | Outpatient (CLI) | payer MEDICARE, SELFPAY ==
[2020-12-06 10:34] VITALS: BMI 36.6
--- NOTE | 2020-12-17 07:10 | MRI_ITS ---
STUDY: MRI LEFT HIP REASON FOR EXAM: Left hip/groin pain for 6 months. TECHNIQUE: Standardized fat and water weighted pulse sequences were obtained in all 3 orthogonal planes. COMPARISON: Radiographs 07/17/2020. FINDINGS: There is chondral thinning of the left hip (proton-density sagittal image 13). There is a left hip joint effusion (proton-density sagittal images 10-16). There is mild bone edema of the left acetabulum (inversion recovery coronal images 12, 13). There is a tear of the left anterosuperior labrum (proton-density sagittal image 13). There is avascular necrosis of the left femoral head with mild subchondral collapse (T1 coronal images 14-18) and mild associated bone edema extending into the femoral neck and intratrochanteric femur (inversion recovery coronal images 14-18). Normal gluteus minimus, medius and iliopsoas tendons and distal insertions. There is no trochanteric, iliopsoas or iliopectineal bursitis. Normal superior and inferior pubic rami. Normal pubic symphysis. Normal ischial tuberosity. Normal origin of the hamstring tendons. Normal visualized iliac wing, sacroiliac joint, and sacral ala. Normal visualized soft tissue structures of the pelvis. MRI/Lower Ext Joint Only (Routine) IMPRESSION: Avascular necrosis of the left femoral head. Arthrosis of the left hip. Tear of the left anterosuperior labrum. Left hip joint effusion. Electronically Signed: Ede Crooks MD at 9:19 EST Tel , Service support ,
--- NOTE | 2020-12-17 07:10 | MRI_ITS ---
STUDY: MRI RIGHT HIP REASON FOR EXAM: Right hip/groin pain for 6 months. TECHNIQUE: Standardized fat and water weighted pulse sequences were obtained in all 3 orthogonal planes. COMPARISON: Radiographs 07/17/2020. FINDINGS: There is mild chondral thinning of the right hip (proton-density sagittal image 19). There is a right hip joint effusion (proton-density sagittal images 15-19). Normal acetabulum. There is a tear of the right anterosuperior labrum (proton-density sagittal images 17, 18). There is avascular necrosis of the right femoral head (T1 coronal images 16-19) without demonstrated subchondral collapse with mild bone edema in the femoral neck/intratrochanteric femur (inversion recovery coronal images 15-18). There is a bone infarct in the proximal right femoral diaphysis (T1 coronal images 15, 16). Normal gluteus minimus, medius and iliopsoas tendons and distal insertions. There is no trochanteric, iliopsoas or iliopectineal bursitis. Normal superior and inferior pubic rami. Normal pubic symphysis. Normal ischial tuberosity. Normal origin of the hamstring tendons. Normal visualized iliac wing, sacroiliac joint, and sacral ala. Normal visualized soft tissue structures of the pelvis. MRI/Lower Ext Joint Only (Routine) IMPRESSION: Avascular necrosis of the right femoral head. Mild right hip arthrosis. Tear of the right anterosuperior labrum. 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 Right hip joint effusion. Electronically Signed: Ede Crooks MD at 10:07 EST Tel , Service support ,
== END ==
PROVIDERS: PCP Family Medicine; Referring Provider Orthopaedic Surgery; Visit Provider Orthopaedic Surgery
DX: M87.9 Osteonecrosis, unspecified (principal); M25.559 Pain in unspecified hip; M87.059 Idiopathic aseptic necrosis of unspecified femur
CPT/HCPCS: 73721

== ENCOUNTER 2021-01-03 13:14 | Outpatient (RCR) | payer MEDICARE, SELFPAY ==
[2021-01-03 13:26] LABS: Absolute Lymphocyte Count 1.88 X10^3/uL (0.83-4.51); Absolute Neutrophil Count 3.7 X10^3/uL (2.0-7.7); Basophil# 0.01 X10^3/uL; Basophil% 0.2 % (0-1); Eosinophil# 0.06 X10^3/uL; Eosinophils% 0.9 % (0-5); Hematocrit 42.6 % (40-54); Hemoglobin 14.1 g/dL (13.0-16.5); Lymphocyte # 1.88 X10^3/ul (4.0); Lymphocyte % 29.7 % (19-41); Mean Corp Hgb Conc 33.1 g/dL (32-36); Mean Corpuscular Hgb 33.2 pg (27.0-32.0); Mean Corpuscular Volume 100.2 fL (80-94); Mean Platelet Vol. 9.1 fl (6.2-12.0); Monocyte# 0.65 X10^3/uL; Monocyte% 10.3 % (0-10); NRBC Flagged by Analyzer 0 % (0-5); Neutrophil # 3.67 X10^3/uL (2.7-7.7); Neutrophil % 58.1 % (47-70); POSITIVE COUNT YES; Platelet Count 88 K/mm3 (150-450); RBC Distribution Width CV 13.2 % (11.6-14.6); RBC Distribution Width SD 48.9 fl (35.1-43.9); Red Blood Count 4.25 M/mm3 (4.6-6.2); White Blood Count 6.3 K/mm3 (4.4-11.0)
[2021-01-03 13:29] LABS: Differential Indicated SCAN CRITERIA MET
[2021-01-03 13:36] LABS: Anion Gap 5 (5-15); BUN 22 mg/dL (7-18); BUN/Creat Ratio 22.5 RATIO (10-20); Chloride 106 mmol/L (98-107); Creatinine, Serum 0.98 mg/dL (0.70-1.30); EST Glomerular Filtration Rate 86 mL/min (>60); Est Glom Filt Rate - Afr Amer 104 mL/min (>60); Glucose 101 mg/dL (74-106); Potassium 4.2 mmol/L (3.5-5.1); Sodium Level 138 mmol/L (136-145)
[2021-01-03 13:53] LABS: Platelet Estimate MOD DEC (ADEQ)
== END 2021-01-03 18:00 | disposition home or self-care (01) ==
LOC: LAB 13:14
PROVIDERS: PCP Family Medicine
DX: D61.9 Aplastic anemia, unspecified (principal)
CPT/HCPCS: 36415; 80048; 85025

== ENCOUNTER 2021-02-13 12:17 | Outpatient (RCR) | payer MEDICARE, SELFPAY ==
[2021-02-01 10:26] LABS: Absolute Lymphocyte Count 1.06 X10^3/uL (0.83-4.51); Absolute Neutrophil Count 10.2 X10^3/uL (2.0-7.7); Basophil# 0.02 X10^3/uL; Basophil% 0.2 % (0-1); Eosinophil# 0.22 X10^3/uL; Eosinophils% 1.8 % (0-5); Hematocrit 31.2 % (40-54); Hemoglobin 10.5 g/dL (13.0-16.5); Lymphocyte # 1.06 X10^3/ul (4.0); Lymphocyte % 8.6 % (19-41); Mean Corp Hgb Conc 33.7 g/dL (32-36); Mean Corpuscular Hgb 34.3 pg (27.0-32.0); Mean Platelet Vol. 9.7 fl (6.2-12.0); Monocyte# 0.74 X10^3/uL; NRBC Flagged by Analyzer 0 % (0-5); Neutrophil # 10.16 X10^3/uL (2.7-7.7); Neutrophil % 81.9 % (47-70); POSITIVE COUNT YES; Platelet Count 93 K/mm3 (150-450); RBC Distribution Width CV 13.6 % (11.6-14.6); RBC Distribution Width SD 51.4 fl (35.1-43.9); Red Blood Count 3.06 M/mm3 (4.6-6.2); White Blood Count 12.4 K/mm3 (4.4-11.0)
[2021-02-01 10:39] LABS: Anion Gap 6 (5-15); BUN 17 mg/dL (7-18); BUN/Creat Ratio 17.1 RATIO (10-20); Calcium,Total 8.6 mg/dL (8.5-10.1); Chloride 100 mmol/L (98-107); Creatinine, Serum 0.99 mg/dL (0.70-1.30); EST Glomerular Filtration Rate 84 mL/min (>60); Est Glom Filt Rate - Afr Amer 102 mL/min (>60); Glucose 124 mg/dL (74-106); Potassium 3.6 mmol/L (3.5-5.1); Sodium Level 134 mmol/L (136-145)
[2021-02-13 15:29] LABS: Absolute Lymphocyte Count 2.44 X10^3/uL (0.83-4.51); Absolute Neutrophil Count 4.7 X10^3/uL (2.0-7.7); Basophil# 0.03 X10^3/uL; Basophil% 0.4 % (0-1); Eosinophils% 3.6 % (0-5); Hematocrit 36.6 % (40-54); Hemoglobin 11.4 g/dL (13.0-16.5); Lymphocyte # 2.44 X10^3/ul (0.83-4.51); Lymphocyte % 29.3 % (19-41); Mean Corp Hgb Conc 31.1 g/dL (32-36); Mean Corpuscular Hgb 33.6 pg (27.0-32.0); Mean Platelet Vol. 9.9 fl (6.2-12.0); Monocyte# 0.79 X10^3/uL; Monocyte% 9.5 % (0-10); NRBC Flagged by Analyzer 0 % (0-5); Neutrophil # 4.73 X10^3/uL (2.7-7.7); Neutrophil % 56.6 % (47-70); Platelet Count 126 K/mm3 (150-450); RBC Distribution Width CV 14.5 % (11.6-14.6); RBC Distribution Width SD 56.8 fl (35.1-43.9); Red Blood Count 3.39 M/mm3 (4.6-6.2); White Blood Count 8.3 K/mm3 (4.4-11.0)
[2021-02-13 16:00] LABS: Anion Gap 5 (5-15); BUN 17 mg/dL (7-18); BUN/Creat Ratio 16.5 RATIO (10-20); Calcium,Total 9.3 mg/dL (8.5-10.1); Chloride 101 mmol/L (98-107); Creatinine, Serum 1.03 mg/dL (0.70-1.30); EST Glomerular Filtration Rate 81 mL/min (>60); Est Glom Filt Rate - Afr Amer 98 mL/min (>60); Glucose 92 mg/dL (74-106); Potassium 4.4 mmol/L (3.5-5.1); Sodium Level 134 mmol/L (136-145)
== END 2021-02-13 18:00 | disposition home or self-care (01) ==
LOC: LAB 12:17
PROVIDERS: PCP Family Medicine
DX: D61.9 Aplastic anemia, unspecified (principal)
CPT/HCPCS: 36415; 80048; 85025

== ENCOUNTER 2021-03-07 10:13 | Outpatient (RCR) | payer MEDICARE, SELFPAY ==
[2021-03-07 10:40] LABS: Absolute Lymphocyte Count 1.96 X10^3/uL (0.83-4.51); Absolute Neutrophil Count 4.4 X10^3/uL (2.0-7.7); Basophil# 0.01 X10^3/uL; Basophil% 0.1 % (0-1); Eosinophil# 0.06 X10^3/uL; Eosinophils% 0.8 % (0-5); Hematocrit 37.3 % (40-54); Hemoglobin 12.5 g/dL (13.0-16.5); Lymphocyte # 1.96 X10^3/ul (0.83-4.51); Lymphocyte % 26.7 % (19-41); Mean Corp Hgb Conc 33.5 g/dL (32-36); Mean Corpuscular Hgb 34.7 pg (27.0-32.0); Mean Corpuscular Volume 103.6 fL (80-94); Mean Platelet Vol. 9.7 fl (6.2-12.0); Monocyte# 0.82 X10^3/uL; Monocyte% 11.2 % (0-10); NRBC Flagged by Analyzer 0 % (0-5); Neutrophil # 4.44 X10^3/uL (2.7-7.7); Neutrophil % 60.7 % (47-70); Platelet Count 142 K/mm3 (150-450); RBC Distribution Width CV 13.9 % (11.6-14.6); RBC Distribution Width SD 52.8 fl (35.1-43.9); White Blood Count 7.3 K/mm3 (4.4-11.0)
[2021-03-07 11:19] LABS: Anion Gap 5 (5-15); BUN 18 mg/dL (7-18); Calcium,Total 8.9 mg/dL (8.5-10.1); Chloride 107 mmol/L (98-107); Creatinine, Serum 0.86 mg/dL (0.70-1.30); EST Glomerular Filtration Rate 100 mL/min (>60); Est Glom Filt Rate - Afr Amer 121 mL/min (>60); Glucose 105 mg/dL (74-106); Potassium 4.3 mmol/L (3.5-5.1); Sodium Level 139 mmol/L (136-145)
== END 2021-03-07 18:00 | disposition home or self-care (01) ==
LOC: LAB 10:13
PROVIDERS: PCP Family Medicine
DX: D61.9 Aplastic anemia, unspecified (principal)
CPT/HCPCS: 36415; 80048; 85025

== ENCOUNTER 2021-04-08 11:41 | Outpatient (RCR) | payer MEDICARE, SELFPAY ==
[2021-04-08 12:32] LABS: Absolute Lymphocyte Count 1.93 X10^3/uL (0.83-4.51); Absolute Neutrophil Count 4.2 X10^3/uL (2.0-7.7); Basophil# 0.02 X10^3/uL; Basophil% 0.3 % (0-1); Eosinophil# 0.09 X10^3/uL; Eosinophils% 1.3 % (0-5); Hematocrit 40.1 % (40-54); Hemoglobin 13.6 g/dL (13.0-16.5); Lymphocyte # 1.93 X10^3/ul (0.83-4.51); Lymphocyte % 27.2 % (19-41); Mean Corp Hgb Conc 33.9 g/dL (32-36); Mean Corpuscular Hgb 33.7 pg (27.0-32.0); Mean Corpuscular Volume 99.3 fL (80-94); Mean Platelet Vol. 9.9 fl (6.2-12.0); Monocyte# 0.83 X10^3/uL; Monocyte% 11.7 % (0-10); NRBC Flagged by Analyzer 0 % (0-5); Neutrophil # 4.18 X10^3/uL (2.7-7.7); Neutrophil % 58.8 % (47-70); Platelet Count 149 K/mm3 (150-450); RBC Distribution Width CV 12.7 % (11.6-14.6); RBC Distribution Width SD 46.4 fl (35.1-43.9); Red Blood Count 4.04 M/mm3 (4.6-6.2); White Blood Count 7.1 K/mm3 (4.4-11.0)
[2021-04-08 12:45] LABS: Anion Gap 5 (5-15); BUN 16 mg/dL (7-18); BUN/Creat Ratio 17.5 RATIO (10-20); Calcium,Total 8.9 mg/dL (8.5-10.1); Chloride 106 mmol/L (98-107); Creatinine, Serum 0.91 mg/dL (0.70-1.30); EST Glomerular Filtration Rate 93 mL/min (>60); Est Glom Filt Rate - Afr Amer 113 mL/min (>60); Glucose 106 mg/dL (74-106); Potassium 3.9 mmol/L (3.5-5.1); Sodium Level 138 mmol/L (136-145)
== END 2021-04-08 18:00 | disposition home or self-care (01) ==
LOC: LAB 11:41
PROVIDERS: PCP Family Medicine
DX: D61.9 Aplastic anemia, unspecified (principal)
CPT/HCPCS: 36415; 80048; 85025

== ENCOUNTER 2021-06-06 11:25 | Outpatient (RCR) | payer MEDICARE, SELFPAY ==
[2021-06-06 12:29] LABS: Absolute Lymphocyte Count 1.84 X10^3/uL (0.83-4.51); Absolute Neutrophil Count 5.7 X10^3/uL (2.0-7.7); Basophil# 0.03 X10^3/uL; Basophil% 0.3 % (0-1); Eosinophil# 0.12 X10^3/uL; Eosinophils% 1.4 % (0-5); Hematocrit 42.1 % (40-54); Hemoglobin 14.5 g/dL (13.0-16.5); Lymphocyte # 1.84 X10^3/ul (0.83-4.51); Lymphocyte % 21.3 % (19-41); Mean Corp Hgb Conc 34.4 g/dL (32-36); Mean Corpuscular Hgb 33.4 pg (27.0-32.0); Mean Platelet Vol. 9.8 fl (6.2-12.0); Monocyte# 0.85 X10^3/uL; Monocyte% 9.9 % (0-10); NRBC Flagged by Analyzer 0 % (0-5); Neutrophil # 5.68 X10^3/uL (2.7-7.7); Neutrophil % 65.9 % (47-70); Platelet Count 161 K/mm3 (150-450); RBC Distribution Width CV 13.1 % (11.6-14.6); RBC Distribution Width SD 46.6 fl (35.1-43.9); Red Blood Count 4.34 M/mm3 (4.6-6.2); White Blood Count 8.6 K/mm3 (4.4-11.0)
[2021-06-06 12:49] LABS: Anion Gap 6 (5-15); BUN 14 mg/dL (7-18); BUN/Creat Ratio 16.3 RATIO (10-20); Calcium,Total 8.9 mg/dL (8.5-10.1); Chloride 108 mmol/L (98-107); Creatinine, Serum 0.86 mg/dL (0.70-1.30); EST Glomerular Filtration Rate 100 mL/min (>60); Est Glom Filt Rate - Afr Amer 121 mL/min (>60); Glucose 108 mg/dL (74-106); Potassium 4.1 mmol/L (3.5-5.1); Sodium Level 139 mmol/L (136-145)
== END 2021-06-06 18:00 | disposition home or self-care (01) ==
LOC: LAB 11:25
PROVIDERS: PCP Family Medicine
DX: D61.9 Aplastic anemia, unspecified (principal)
CPT/HCPCS: 36415; 80048; 85025

== ENCOUNTER 2021-09-05 09:39 | Outpatient (RCR) | payer MEDICARE, SELFPAY ==
[2021-09-05 10:56] LABS: Absolute Lymphocyte Count 1.84 X10^3/uL (0.83-4.51); Absolute Neutrophil Count 3.6 X10^3/uL (2.0-7.7); Basophil# 0.02 X10^3/uL; Basophil% 0.3 % (0-1); Eosinophil# 0.11 X10^3/uL; Eosinophils% 1.7 % (0-5); Hematocrit 39.5 % (40-54); Hemoglobin 13.6 g/dL (13.0-16.5); Lymphocyte # 1.84 X10^3/ul (0.83-4.51); Lymphocyte % 28.6 % (19-41); Mean Corp Hgb Conc 34.4 g/dL (32-36); Mean Corpuscular Hgb 33.6 pg (27.0-32.0); Mean Corpuscular Volume 97.5 fL (80-94); Monocyte# 0.84 X10^3/uL; Monocyte% 13.1 % (0-10); NRBC Flagged by Analyzer 0 % (0-5); Neutrophil # 3.56 X10^3/uL (2.7-7.7); Neutrophil % 55.4 % (47-70); Platelet Count 139 K/mm3 (150-450); RBC Distribution Width CV 13.1 % (11.6-14.6); RBC Distribution Width SD 46.6 fl (35.1-43.9); Red Blood Count 4.05 M/mm3 (4.6-6.2); White Blood Count 6.4 K/mm3 (4.4-11.0)
[2021-09-05 11:24] LABS: Anion Gap 3 (5-15); BUN 19 mg/dL (7-18); BUN/Creat Ratio 20.9 RATIO (10-20); Calcium,Total 8.9 mg/dL (8.5-10.1); Chloride 108 mmol/L (98-107); Creatinine, Serum 0.91 mg/dL (0.70-1.30); EST Glomerular Filtration Rate 93 mL/min (>60); Est Glom Filt Rate - Afr Amer 113 mL/min (>60); Glucose 110 mg/dL (74-106); Potassium 4.3 mmol/L (3.5-5.1); Sodium Level 139 mmol/L (136-145)
== END 2021-09-30 18:00 | disposition home or self-care (01) ==
LOC: LAB 09:39
PROVIDERS: PCP Family Medicine
DX: D61.9 Aplastic anemia, unspecified (principal)
CPT/HCPCS: 36415; 80048; 85025

== ENCOUNTER 2021-10-10 11:35 | Outpatient (RCR) | payer MEDICARE, SELFPAY ==
[2021-10-10 12:04] LABS: Absolute Lymphocyte Count 2.24 X10^3/uL (0.83-4.51); Absolute Neutrophil Count 3.9 X10^3/uL (2.0-7.7); Basophil# 0.02 X10^3/uL; Basophil% 0.3 % (0-1); Eosinophil# 0.13 X10^3/uL; Eosinophils% 1.8 % (0-5); Hematocrit 41.9 % (40-54); Hemoglobin 14.4 g/dL (13.0-16.5); Lymphocyte # 2.24 X10^3/ul (0.83-4.51); Mean Corp Hgb Conc 34.4 g/dL (32-36); Mean Corpuscular Hgb 33.6 pg (27.0-32.0); Mean Corpuscular Volume 97.7 fL (80-94); Mean Platelet Vol. 9.4 fl (6.2-12.0); Monocyte# 0.85 X10^3/uL; Monocyte% 11.8 % (0-10); NRBC Flagged by Analyzer 0 % (0-5); Neutrophil # 3.91 X10^3/uL (2.7-7.7); Platelet Count 150 K/mm3 (150-450); RBC Distribution Width SD 46.4 fl (35.1-43.9); Red Blood Count 4.29 M/mm3 (4.6-6.2); White Blood Count 7.2 K/mm3 (4.4-11.0)
[2021-10-10 12:24] LABS: Anion Gap 6 (5-15); BUN 21 mg/dL (7-18); BUN/Creat Ratio 23.5 RATIO (10-20); Calcium,Total 8.6 mg/dL (8.5-10.1); Chloride 108 mmol/L (98-107); Creatinine, Serum 0.89 mg/dL (0.70-1.30); EST Glomerular Filtration Rate 95 mL/min (>60); Est Glom Filt Rate - Afr Amer 115 mL/min (>60); Glucose 108 mg/dL (74-106); Potassium 4.1 mmol/L (3.5-5.1); Sodium Level 140 mmol/L (136-145)
== END 2021-11-01 18:00 | disposition home or self-care (01) ==
LOC: LAB 11:35
PROVIDERS: PCP Family Medicine
DX: D61.9 Aplastic anemia, unspecified (principal)
CPT/HCPCS: 36415; 80048; 85025

== ENCOUNTER 2021-12-17 14:15 | Outpatient (RCR) | payer MEDICARE, SELFPAY ==
[2021-12-17 14:53] LABS: Absolute Lymphocyte Count 1.88 X10^3/uL (0.83-4.51); Absolute Neutrophil Count 4.1 X10^3/uL (2.0-7.7); Basophil# 0.01 X10^3/uL; Basophil% 0.1 % (0-1); Eosinophil# 0.09 X10^3/uL; Eosinophils% 1.3 % (0-5); Hematocrit 41.2 % (40-54); Hemoglobin 14.6 g/dL (13.0-16.5); Lymphocyte # 1.88 X10^3/ul (0.83-4.51); Lymphocyte % 26.9 % (19-41); Mean Corp Hgb Conc 35.4 g/dL (32-36); Mean Corpuscular Hgb 33.9 pg (27.0-32.0); Mean Corpuscular Volume 95.6 fL (80-94); Mean Platelet Vol. 9.4 fl (6.2-12.0); Monocyte# 0.88 X10^3/uL; Monocyte% 12.6 % (0-10); NRBC Flagged by Analyzer 0 % (0-5); Neutrophil # 4.08 X10^3/uL (2.7-7.7); Neutrophil % 58.5 % (47-70); Platelet Count 146 K/mm3 (150-450); RBC Distribution Width CV 12.9 % (11.6-14.6); RBC Distribution Width SD 45.6 fl (35.1-43.9); Red Blood Count 4.31 M/mm3 (4.6-6.2)
[2021-12-17 15:06] LABS: Anion Gap 7 (5-15); BUN 17 mg/dL (7-18); Calcium,Total 9.1 mg/dL (8.5-10.1); Chloride 105 mmol/L (98-107); Creatinine, Serum 0.89 mg/dL (0.70-1.30); EST Glomerular Filtration Rate 95 mL/min (>60); Est Glom Filt Rate - Afr Amer 115 mL/min (>60); Glucose 102 mg/dL (74-106); Potassium 3.8 mmol/L (3.5-5.1); Sodium Level 137 mmol/L (136-145)
== END 2021-12-17 18:00 | disposition home or self-care (01) ==
LOC: LAB 14:15
PROVIDERS: PCP Family Medicine
DX: D61.9 Aplastic anemia, unspecified (principal)
CPT/HCPCS: 36415; 80048; 85025

== ENCOUNTER 2021-12-29 09:50 | Outpatient (CLI) | payer MEDICARE, SELFPAY ==
--- NOTE | 2021-12-29 09:59 | ECHOCS_ITS ---
Reason For Study: LENS POLISHER DRUG THERAPY Procedure This was a 2D Doppler, Color Flow transthoracic echocardiogram. The study was technically difficult. Exam performed in department. Left Ventricle Normal LV size. Left ventricular systolic function is normal. The estimated ejection fraction is 60 %. Stage 1 diastolic dysfunction. No regional wall motion abnormalities noted. Right Ventricle Normal RV size. Normal systolic function. Atria Normal left atrium. Normal right atrium. Mitral Valve Normal mitral valve. Tricuspid Valve Normal tricuspid valve. Aortic Valve Normal aortic valve. Trisinus/trileaflet aortic valve. Pulmonic Valve Normal pulmonic valve. Great Vessels Normal aortic root. The pulmonary artery is normal size. Normal inferior vena cava. Pericardium/Pleural No pericardial effusion. Medication 22 gauge I.V. with prn adaptor inserted into right arm. Diluted definity 3ml given slow IV push to enhance endocardial definition. MMode/2D Measurements & Calculations LVIDd: 5.1 cm IVSd: 0.77 cm Ao root diam: 3.3 cm LVIDs: 3.6 cm LVPWd: 1.0 cm RVDd: 4.0 cm FS: 29.0 % LAV(MOD-bp): 53.2 ml LVAd ap4: 44.9 cm2 SV(MOD-sp4): 110.8 ml LAV(MOD-bp) Indexed: 22.4 ml/m2 LVLd ap4: 9.3 cm LAV(MOD-sp2): 53.9 ml EDV(MOD-sp4): 175.9 ml LAV(MOD-sp4): 53.0 ml EDV(sp4-el): 184.1 ml LVAs ap4: 24.2 cm2 LVLs ap4: 7.3 cm ESV(MOD-sp4): 65.1 ml ESV(sp4-el): 67.5 ml EF(MOD-sp4): 63.0 % EF(sp4-el): 63.3 % SV(sp4-el): 116.5 ml LA A4 area: 19.0 cm2 LA dimension(2D): 3.9 cm RA A4 area: 16.6 cm2 Time Measurements MV dec time: 0.22 sec Doppler Measurements & Calculations MV E max manish: 66.6 cm/sec Lat Peak E' Manish: 11.2 cm/sec Med Peak E' Manish: 8.6 cm/sec MV A max manish: 77.5 cm/sec E/E' lat: 5.9 E/E' med: 7.7 MV E/A: 0.86 Ao V2 max: 142.1 cm/sec LV V1 max: 119.0 cm/sec PA V2 max: 96.3 cm/sec Ao max P.1 mmHg LV V1 max P.7 mmHg ECHO/Echo Complete W/ Contrast Interpretation Summary Normal LV size. Left ventricular systolic function is normal. The estimated ejection fraction is 60 %. Stage 1 diastolic dysfunction. Contrast injection was performed. Ordering Physician: Soheila Gomez/Dilan France Referring Physician: RACHID MALLORY Performed By: Sulema Dill RDCS
== END 2021-12-29 23:59 | disposition home or self-care (01) ==
PROVIDERS: PCP Family Medicine; Visit Provider Physician Assistant Medical
DX: Z79.899 Other long term (current) drug therapy (principal)
CPT/HCPCS: 93306; Q9957; A4216; C8929

== ENCOUNTER 2023-10-29 12:12 | Outpatient (RCR) | payer MEDICARE, SELFPAY ==
[2023-10-22 09:18] LABS: Absolute Lymphocyte Count 1.82 X10^3/uL (0.83-4.51); Absolute Neutrophil Count 2.7 X10^3/uL (2.0-7.7); Basophil# 0.01 X10^3/uL; Basophil% 0.2 % (0-1); Eosinophil# 0.06 X10^3/uL; Eosinophils% 1.1 % (0-5); Hematocrit 35.1 % (40-54); Hemoglobin 12.2 g/dL (13.0-16.5); Lymphocyte # 1.82 X10^3/ul (0.83-4.51); Lymphocyte % 34.5 % (19-41); Mean Corp Hgb Conc 34.8 g/dL (32-36); Mean Corpuscular Hgb 36.7 pg (27.0-32.0); Mean Corpuscular Volume 105.7 fL (80-94); Mean Platelet Vol. 9.5 fl (6.2-12.0); Monocyte# 0.69 X10^3/uL; Monocyte% 13.1 % (0-10); NRBC Flagged by Analyzer 0 % (0-5); Neutrophil # 2.66 X10^3/uL (2.7-7.7); Neutrophil % 50.5 % (47-70); POSITIVE COUNT YES; Platelet Count 65 K/mm3 (150-450); RBC Distribution Width CV 13.7 % (11.6-14.6); RBC Distribution Width SD 52.8 fl (35.1-43.9); Red Blood Count 3.32 M/mm3 (4.6-6.2); White Blood Count 5.3 K/mm3 (4.4-11.0)
[2023-10-22 09:19] LABS: Differential Indicated SCAN CRITERIA MET
[2023-10-22 09:38] LABS: Platelet Estimate MOD DEC (ADEQ)
[2023-10-22 09:49] LABS: ALB/GLOB Ratio 1.2 RATIO (0.9-2.4); AST(SGOT) 20 U/L (15-37); Alanine Aminotransfer ALT/SGPT 30 U/L (16-61); Albumin, Serum 3.8 g/dL (3.2-5.0); Alkaline Phosphatase 81 U/L (45-117); Anion Gap 6 (5-15); BUN 20 mg/dL (7-18); Calcium,Total 9.2 mg/dL (8.5-10.1); Chloride 108 mmol/L (98-107); Creatinine, Serum 1.05 mg/dL (0.70-1.30); EST Glomerular Filtration Rate 78 mL/min (>60); Est Glom Filt Rate - Afr Amer 95 mL/min (>60); Globulin 3.1 g/dL (2.2-4.2); Glucose 121 mg/dL (74-106); Potassium 4.2 mmol/L (3.5-5.1); Protein, Total 6.9 g/dL (6.4-8.2); Sodium Level 138 mmol/L (136-145)
[2023-10-26 00:06] LABS: Cyclosporine 45 ng/mL (100-400)
[2023-10-29 12:53] LABS: Absolute Lymphocyte Count 1.93 X10^3/uL (0.83-4.51); Basophil# 0.01 X10^3/uL; Basophil% 0.2 % (0-1); Eosinophil# 0.07 X10^3/uL; Eosinophils% 1.2 % (0-5); Hematocrit 35.1 % (40-54); Hemoglobin 12.4 g/dL (13.0-16.5); Lymphocyte # 1.93 X10^3/ul (0.83-4.51); Lymphocyte % 34.4 % (19-41); Mean Corp Hgb Conc 35.3 g/dL (32-36); Mean Corpuscular Hgb 37.6 pg (27.0-32.0); Mean Corpuscular Volume 106.4 fL (80-94); Mean Platelet Vol. 10.3 fl (6.2-12.0); Monocyte# 0.58 X10^3/uL; Monocyte% 10.3 % (0-10); NRBC Flagged by Analyzer 0 % (0-5); Neutrophil # 2.99 X10^3/uL (2.7-7.7); Neutrophil % 53.4 % (47-70); POSITIVE COUNT YES; Platelet Count 73 K/mm3 (150-450); RBC Distribution Width CV 13.7 % (11.6-14.6); RBC Distribution Width SD 53.2 fl (35.1-43.9); White Blood Count 5.6 K/mm3 (4.4-11.0)
[2023-10-29 13:21] LABS: ALB/GLOB Ratio 1.3 RATIO (0.9-2.4); AST(SGOT) 21 U/L (15-37); Alanine Aminotransfer ALT/SGPT 29 U/L (16-61); Albumin, Serum 3.8 g/dL (3.2-5.0); Alkaline Phosphatase 79 U/L (45-117); Anion Gap 6 (5-15); BUN 14 mg/dL (7-18); BUN/Creat Ratio 14.8 RATIO (10-20); Calcium,Total 8.8 mg/dL (8.5-10.1); Chloride 110 mmol/L (98-107); Creatinine, Serum 0.95 mg/dL (0.70-1.30); EST Glomerular Filtration Rate 88 mL/min (>60); Est Glom Filt Rate - Afr Amer 107 mL/min (>60); Glucose 144 mg/dL (74-106); Protein, Total 6.8 g/dL (6.4-8.2); Sodium Level 140 mmol/L (136-145)
== END 2023-10-31 18:00 | disposition home or self-care (01) ==
LOC: LAB 12:12
PROVIDERS: PCP Family Medicine
DX: D61.9 Aplastic anemia, unspecified (principal)
CPT/HCPCS: 36415; 80053; 80158; 85025

== ENCOUNTER 2023-11-26 12:54 | Outpatient (RCR) | payer MEDICARE, SELFPAY ==
[2023-11-05 12:45] LABS: Absolute Lymphocyte Count 1.76 X10^3/uL (0.83-4.51); Basophil# 0.01 X10^3/uL; Basophil% 0.2 % (0-1); Eosinophil# 0.04 X10^3/uL; Eosinophils% 0.7 % (0-5); Hematocrit 36.3 % (40-54); Hemoglobin 12.6 g/dL (13.0-16.5); Lymphocyte # 1.76 X10^3/ul (0.83-4.51); Lymphocyte % 32.6 % (19-41); Mean Corp Hgb Conc 34.7 g/dL (32-36); Mean Corpuscular Hgb 36.4 pg (27.0-32.0); Mean Corpuscular Volume 104.9 fL (80-94); Mean Platelet Vol. 10.6 fl (6.2-12.0); Monocyte# 0.59 X10^3/uL; Monocyte% 10.9 % (0-10); NRBC Flagged by Analyzer 0 % (0-5); Neutrophil # 2.97 X10^3/uL (2.7-7.7); POSITIVE COUNT YES; Platelet Count 77 K/mm3 (150-450); RBC Distribution Width CV 13.3 % (11.6-14.6); RBC Distribution Width SD 51.4 fl (35.1-43.9); Red Blood Count 3.46 M/mm3 (4.6-6.2); White Blood Count 5.4 K/mm3 (4.4-11.0)
[2023-11-05 13:18] LABS: ALB/GLOB Ratio 1.1 RATIO (0.9-2.4); AST(SGOT) 18 U/L (15-37); Alanine Aminotransfer ALT/SGPT 31 U/L (16-61); Albumin, Serum 3.6 g/dL (3.2-5.0); Alkaline Phosphatase 84 U/L (45-117); Anion Gap 5 (5-15); BUN 21 mg/dL (7-18); BUN/Creat Ratio 19.8 RATIO (10-20); Calcium,Total 9.3 mg/dL (8.5-10.1); Chloride 109 mmol/L (98-107); Creatinine, Serum 1.06 mg/dL (0.70-1.30); EST Glomerular Filtration Rate 78 mL/min (>60); Est Glom Filt Rate - Afr Amer 94 mL/min (>60); Globulin 3.3 g/dL (2.2-4.2); Glucose 115 mg/dL (74-106); Potassium 4.1 mmol/L (3.5-5.1); Protein, Total 6.9 g/dL (6.4-8.2); Sodium Level 138 mmol/L (136-145)
[2023-11-11 10:46] LABS: Absolute Lymphocyte Count 1.64 X10^3/uL (0.83-4.51); Absolute Neutrophil Count 3.4 X10^3/uL (2.0-7.7); Basophil# 0.01 X10^3/uL; Basophil% 0.2 % (0-1); Eosinophil# 0.07 X10^3/uL; Eosinophils% 1.2 % (0-5); Hematocrit 37.9 % (40-54); Hemoglobin 12.9 g/dL (13.0-16.5); Lymphocyte # 1.64 X10^3/ul (0.83-4.51); Lymphocyte % 28.6 % (19-41); Mean Corpuscular Hgb 35.8 pg (27.0-32.0); Mean Corpuscular Volume 105.3 fL (80-94); Mean Platelet Vol. 10.6 fl (6.2-12.0); Monocyte# 0.55 X10^3/uL; Monocyte% 9.6 % (0-10); NRBC Flagged by Analyzer 0 % (0-5); Neutrophil # 3.42 X10^3/uL (2.7-7.7); Neutrophil % 59.7 % (47-70); POSITIVE COUNT YES; Platelet Count 77 K/mm3 (150-450); RBC Distribution Width CV 13.2 % (11.6-14.6); RBC Distribution Width SD 51.1 fl (35.1-43.9); White Blood Count 5.7 K/mm3 (4.4-11.0)
[2023-11-11 11:11] LABS: ALB/GLOB Ratio 1.3 RATIO (0.9-2.4); AST(SGOT) 19 U/L (15-37); Alanine Aminotransfer ALT/SGPT 30 U/L (16-61); Albumin, Serum 3.9 g/dL (3.2-5.0); Alkaline Phosphatase 85 U/L (45-117); Anion Gap 6 (5-15); BUN 20 mg/dL (7-18); Calcium,Total 9.1 mg/dL (8.5-10.1); Chloride 109 mmol/L (98-107); EST Glomerular Filtration Rate 83 mL/min (>60); Est Glom Filt Rate - Afr Amer 101 mL/min (>60); Glucose 148 mg/dL (74-106); Potassium 4.1 mmol/L (3.5-5.1); Protein, Total 6.9 g/dL (6.4-8.2); Sodium Level 139 mmol/L (136-145)
[2023-11-15 05:07] LABS: Cyclosporine 64 ng/mL (100-400)
[2023-11-19 09:30] LABS: Absolute Lymphocyte Count 1.59 X10^3/uL (0.83-4.51); Absolute Neutrophil Count 3.1 X10^3/uL (2.0-7.7); Basophil# 0.01 X10^3/uL; Basophil% 0.2 % (0-1); Eosinophil# 0.05 X10^3/uL; Hematocrit 35.6 % (40-54); Hemoglobin 12.6 g/dL (13.0-16.5); Lymphocyte # 1.59 X10^3/ul (0.83-4.51); Lymphocyte % 30.5 % (19-41); Mean Corp Hgb Conc 35.4 g/dL (32-36); Mean Corpuscular Hgb 37.3 pg (27.0-32.0); Mean Corpuscular Volume 105.3 fL (80-94); Mean Platelet Vol. 9.9 fl (6.2-12.0); Monocyte# 0.45 X10^3/uL; Monocyte% 8.6 % (0-10); NRBC Flagged by Analyzer 0 % (0-5); Neutrophil % 59.3 % (47-70); POSITIVE COUNT YES; Platelet Count 82 K/mm3 (150-450); RBC Distribution Width CV 13.3 % (11.6-14.6); RBC Distribution Width SD 51.5 fl (35.1-43.9); Red Blood Count 3.38 M/mm3 (4.6-6.2); White Blood Count 5.2 K/mm3 (4.4-11.0)
[2023-11-19 10:14] LABS: ALB/GLOB Ratio 1.3 RATIO (0.9-2.4); AST(SGOT) 19 U/L (15-37); Alanine Aminotransfer ALT/SGPT 30 U/L (16-61); Albumin, Serum 3.8 g/dL (3.2-5.0); Alkaline Phosphatase 86 U/L (45-117); Anion Gap 5 (5-15); BUN 20 mg/dL (7-18); BUN/Creat Ratio 18.7 RATIO (10-20); Calcium,Total 9.2 mg/dL (8.5-10.1); Chloride 108 mmol/L (98-107); Creatinine, Serum 1.07 mg/dL (0.70-1.30); EST Glomerular Filtration Rate 77 mL/min (>60); Est Glom Filt Rate - Afr Amer 93 mL/min (>60); Globulin 2.9 g/dL (2.2-4.2); Glucose 157 mg/dL (74-106); Potassium 3.8 mmol/L (3.5-5.1); Protein, Total 6.7 g/dL (6.4-8.2); Sodium Level 137 mmol/L (136-145)
[2023-11-26 13:14] LABS: Absolute Lymphocyte Count 1.99 X10^3/uL (0.83-4.51); Absolute Neutrophil Count 3.3 X10^3/uL (2.0-7.7); Basophil# 0.01 X10^3/uL; Basophil% 0.2 % (0-1); Eosinophil# 0.02 X10^3/uL; Eosinophils% 0.3 % (0-5); Hematocrit 37.8 % (40-54); Hemoglobin 13.2 g/dL (13.0-16.5); Lymphocyte # 1.99 X10^3/ul (0.83-4.51); Lymphocyte % 32.9 % (19-41); Mean Corp Hgb Conc 34.9 g/dL (32-36); Mean Corpuscular Hgb 36.3 pg (27.0-32.0); Mean Corpuscular Volume 103.8 fL (80-94); Mean Platelet Vol. 10.4 fl (6.2-12.0); Monocyte% 11.6 % (0-10); NRBC Flagged by Analyzer 0 % (0-5); Neutrophil # 3.31 X10^3/uL (2.7-7.7); Neutrophil % 54.7 % (47-70); POSITIVE COUNT YES; Platelet Count 88 K/mm3 (150-450); RBC Distribution Width SD 49.6 fl (35.1-43.9); Red Blood Count 3.64 M/mm3 (4.6-6.2); White Blood Count 6.1 K/mm3 (4.4-11.0)
[2023-11-26 13:19] LABS: Differential Indicated SCAN CRITERIA MET
[2023-11-26 13:33] LABS: ALB/GLOB Ratio 1.4 RATIO (0.9-2.4); AST(SGOT) 23 U/L (15-37); Alanine Aminotransfer ALT/SGPT 35 U/L (16-61); Albumin, Serum 4.1 g/dL (3.2-5.0); Alkaline Phosphatase 86 U/L (45-117); Anion Gap 4 (5-15); BUN 18 mg/dL (7-18); BUN/Creat Ratio 15.5 RATIO (10-20); Calcium,Total 9.1 mg/dL (8.5-10.1); Chloride 110 mmol/L (98-107); Creatinine, Serum 1.16 mg/dL (0.70-1.30); EST Glomerular Filtration Rate 70 mL/min (>60); Est Glom Filt Rate - Afr Amer 85 mL/min (>60); Glucose 122 mg/dL (74-106); Platelet Estimate MOD DEC (ADEQ); Potassium 4.1 mmol/L (3.5-5.1); Protein, Total 7.1 g/dL (6.4-8.2); Sodium Level 138 mmol/L (136-145)
== END 2023-11-26 18:00 | disposition home or self-care (01) ==
LOC: LAB 12:54
PROVIDERS: PCP Family Medicine
DX: D61.9 Aplastic anemia, unspecified (principal)
CPT/HCPCS: 36415; 80053; 80158; 85025

== ENCOUNTER 2023-12-24 12:49 | Outpatient (RCR) | payer MEDICARE, SELFPAY ==
[2023-12-03 09:15] LABS: Absolute Lymphocyte Count 1.77 X10^3/uL (0.83-4.51); Absolute Neutrophil Count 2.3 X10^3/uL (2.0-7.7); Basophil# 0.02 X10^3/uL; Basophil% 0.4 % (0-1); Eosinophil# 0.06 X10^3/uL; Eosinophils% 1.2 % (0-5); Hematocrit 35.9 % (40-54); Hemoglobin 12.5 g/dL (13.0-16.5); Lymphocyte # 1.77 X10^3/ul (0.83-4.51); Mean Corp Hgb Conc 34.8 g/dL (32-36); Mean Corpuscular Hgb 36.3 pg (27.0-32.0); Mean Corpuscular Volume 104.4 fL (80-94); Mean Platelet Vol. 10.2 fl (6.2-12.0); Monocyte% 14.2 % (0-10); NRBC Flagged by Analyzer 0 % (0-5); Neutrophil # 2.34 X10^3/uL (2.7-7.7); Neutrophil % 47.6 % (47-70); POSITIVE COUNT YES; Platelet Count 86 K/mm3 (150-450); RBC Distribution Width SD 49.8 fl (35.1-43.9); Red Blood Count 3.44 M/mm3 (4.6-6.2); White Blood Count 4.9 K/mm3 (4.4-11.0)
[2023-12-03 10:00] LABS: ALB/GLOB Ratio 1.3 RATIO (0.9-2.4); AST(SGOT) 20 U/L (15-37); Alanine Aminotransfer ALT/SGPT 31 U/L (16-61); Albumin, Serum 3.8 g/dL (3.2-5.0); Alkaline Phosphatase 76 U/L (45-117); Anion Gap 3 (5-15); BUN 25 mg/dL (7-18); BUN/Creat Ratio 22.1 RATIO (10-20); Calcium,Total 8.9 mg/dL (8.5-10.1); Chloride 112 mmol/L (98-107); Creatinine, Serum 1.13 mg/dL (0.70-1.30); EST Glomerular Filtration Rate 72 mL/min (>60); Est Glom Filt Rate - Afr Amer 87 mL/min (>60); Globulin 2.9 g/dL (2.2-4.2); Glucose 118 mg/dL (74-106); Potassium 4.4 mmol/L (3.5-5.1); Protein, Total 6.7 g/dL (6.4-8.2); Sodium Level 138 mmol/L (136-145)
[2023-12-06 10:08] LABS: Cyclosporine 107 ng/mL (100-400)
[2023-12-10 10:26] LABS: Absolute Lymphocyte Count 1.67 X10^3/uL (0.83-4.51); Absolute Neutrophil Count 2.7 X10^3/uL (2.0-7.7); Basophil# 0.01 X10^3/uL; Basophil% 0.2 % (0-1); Eosinophil# 0.03 X10^3/uL; Eosinophils% 0.6 % (0-5); Hematocrit 37.9 % (40-54); Lymphocyte # 1.67 X10^3/ul (0.83-4.51); Lymphocyte % 33.1 % (19-41); Mean Corp Hgb Conc 34.3 g/dL (32-36); Mean Corpuscular Hgb 35.7 pg (27.0-32.0); Mean Corpuscular Volume 104.1 fL (80-94); Mean Platelet Vol. 10.5 fl (6.2-12.0); Monocyte# 0.66 X10^3/uL; Monocyte% 13.1 % (0-10); NRBC Flagged by Analyzer 0 % (0-5); Neutrophil # 2.65 X10^3/uL (2.7-7.7); Neutrophil % 52.4 % (47-70); POSITIVE COUNT YES; Platelet Count 89 K/mm3 (150-450); RBC Distribution Width CV 12.9 % (11.6-14.6); RBC Distribution Width SD 49.2 fl (35.1-43.9); Red Blood Count 3.64 M/mm3 (4.6-6.2); White Blood Count 5.1 K/mm3 (4.4-11.0)
[2023-12-10 11:07] LABS: ALB/GLOB Ratio 1.3 RATIO (0.9-2.4); AST(SGOT) 23 U/L (15-37); Alanine Aminotransfer ALT/SGPT 35 U/L (16-61); Albumin, Serum 3.9 g/dL (3.2-5.0); Alkaline Phosphatase 86 U/L (45-117); Anion Gap 4 (5-15); BUN 23 mg/dL (7-18); BUN/Creat Ratio 22.3 RATIO (10-20); Calcium,Total 9.2 mg/dL (8.5-10.1); Chloride 110 mmol/L (98-107); Creatinine, Serum 1.03 mg/dL (0.70-1.30); EST Glomerular Filtration Rate 80 mL/min (>60); Est Glom Filt Rate - Afr Amer 97 mL/min (>60); Glucose 143 mg/dL (74-106); Potassium 4.5 mmol/L (3.5-5.1); Protein, Total 6.9 g/dL (6.4-8.2); Sodium Level 140 mmol/L (136-145)
[2023-12-14 15:08] LABS: Cyclosporine 155 ng/mL (100-400)
[2023-12-17 13:12] LABS: Absolute Lymphocyte Count 2.17 X10^3/uL (0.83-4.51); Absolute Neutrophil Count 2.9 X10^3/uL (2.0-7.7); Basophil# 0.01 X10^3/uL; Basophil% 0.2 % (0-1); Eosinophil# 0.05 X10^3/uL; Eosinophils% 0.9 % (0-5); Hematocrit 38.2 % (40-54); Hemoglobin 13.2 g/dL (13.0-16.5); Lymphocyte # 2.17 X10^3/ul (0.83-4.51); Lymphocyte % 37.4 % (19-41); Mean Corp Hgb Conc 34.6 g/dL (32-36); Mean Corpuscular Hgb 35.7 pg (27.0-32.0); Mean Corpuscular Volume 103.2 fL (80-94); Mean Platelet Vol. 9.8 fl (6.2-12.0); Monocyte# 0.64 X10^3/uL; NRBC Flagged by Analyzer 0 % (0-5); Neutrophil # 2.91 X10^3/uL (2.7-7.7); Neutrophil % 50.2 % (47-70); Platelet Count 103 K/mm3 (150-450); RBC Distribution Width CV 12.8 % (11.6-14.6); RBC Distribution Width SD 48.6 fl (35.1-43.9); White Blood Count 5.8 K/mm3 (4.4-11.0)
[2023-12-17 13:33] LABS: ALB/GLOB Ratio 1.2 RATIO (0.9-2.4); AST(SGOT) 25 U/L (15-37); Alanine Aminotransfer ALT/SGPT 30 U/L (16-61); Albumin, Serum 3.8 g/dL (3.2-5.0); Alkaline Phosphatase 85 U/L (45-117); Anion Gap 4 (5-15); BUN 22 mg/dL (7-18); BUN/Creat Ratio 19.5 RATIO (10-20); Calcium,Total 9.3 mg/dL (8.5-10.1); Chloride 114 mmol/L (98-107); Creatinine, Serum 1.13 mg/dL (0.70-1.30); EST Glomerular Filtration Rate 72 mL/min (>60); Est Glom Filt Rate - Afr Amer 87 mL/min (>60); Globulin 3.1 g/dL (2.2-4.2); Glucose 130 mg/dL (74-106); Potassium 4.1 mmol/L (3.5-5.1); Protein, Total 6.9 g/dL (6.4-8.2); Sodium Level 144 mmol/L (136-145)
[2023-12-24 13:11] LABS: Absolute Lymphocyte Count 2.08 X10^3/uL (0.83-4.51); Absolute Neutrophil Count 2.6 X10^3/uL (2.0-7.7); Eosinophil# 0.04 X10^3/uL; Eosinophils% 0.7 % (0-5); Hematocrit 36.9 % (40-54); Hemoglobin 12.8 g/dL (13.0-16.5); Lymphocyte # 2.08 X10^3/ul (0.83-4.51); Lymphocyte % 38.8 % (19-41); Mean Corp Hgb Conc 34.7 g/dL (32-36); Mean Corpuscular Hgb 35.1 pg (27.0-32.0); Mean Corpuscular Volume 101.1 fL (80-94); Mean Platelet Vol. 10.3 fl (6.2-12.0); Monocyte# 0.65 X10^3/uL; Monocyte% 12.1 % (0-10); NRBC Flagged by Analyzer 0 % (0-5); Neutrophil # 2.57 X10^3/uL (2.7-7.7); Platelet Count 100 K/mm3 (150-450); RBC Distribution Width CV 12.6 % (11.6-14.6); RBC Distribution Width SD 46.9 fl (35.1-43.9); Red Blood Count 3.65 M/mm3 (4.6-6.2); White Blood Count 5.4 K/mm3 (4.4-11.0)
[2023-12-24 13:53] LABS: ALB/GLOB Ratio 1.3 RATIO (0.9-2.4); AST(SGOT) 24 U/L (15-37); Alanine Aminotransfer ALT/SGPT 33 U/L (16-61); Albumin, Serum 3.8 g/dL (3.2-5.0); Alkaline Phosphatase 80 U/L (45-117); Anion Gap 6 (5-15); BUN 20 mg/dL (7-18); BUN/Creat Ratio 19.8 RATIO (10-20); Calcium,Total 8.9 mg/dL (8.5-10.1); Chloride 111 mmol/L (98-107); Creatinine, Serum 1.01 mg/dL (0.70-1.30); EST Glomerular Filtration Rate 82 mL/min (>60); Est Glom Filt Rate - Afr Amer 99 mL/min (>60); Glucose 111 mg/dL (74-106); Protein, Total 6.8 g/dL (6.4-8.2); Sodium Level 141 mmol/L (136-145)
[2023-12-24 20:07] LABS: Cyclosporine 147 ng/mL (100-400)
[2023-12-29 09:45] LABS: Cyclosporine 102 ng/mL (100-400)
== END 2023-12-30 18:00 | disposition home or self-care (01) ==
LOC: LAB 12:49
PROVIDERS: PCP Family Medicine
DX: D61.9 Aplastic anemia, unspecified (principal)
CPT/HCPCS: 36415; 80053; 80158; 85025

== ENCOUNTER 2024-01-14 11:48 | Outpatient (RCR) | payer MEDICARE, SELFPAY ==
[2023-12-31 12:21] LABS: Absolute Neutrophil Count 3.1 X10^3/uL (2.0-7.7); Basophil# 0.01 X10^3/uL; Basophil% 0.2 % (0-1); Eosinophil# 0.03 X10^3/uL; Eosinophils% 0.5 % (0-5); Hematocrit 36.8 % (40-54); Hemoglobin 13.3 g/dL (13.0-16.5); Lymphocyte % 35.9 % (19-41); Mean Corp Hgb Conc 36.1 g/dL (32-36); Mean Corpuscular Hgb 36.5 pg (27.0-32.0); Mean Corpuscular Volume 101.1 fL (80-94); Monocyte# 0.75 X10^3/uL; Monocyte% 12.3 % (0-10); NRBC Flagged by Analyzer 0 % (0-5); Neutrophil % 50.6 % (47-70); Platelet Count 101 K/mm3 (150-450); RBC Distribution Width CV 12.8 % (11.6-14.6); RBC Distribution Width SD 47.5 fl (35.1-43.9); Red Blood Count 3.64 M/mm3 (4.6-6.2); White Blood Count 6.1 K/mm3 (4.4-11.0)
[2023-12-31 12:54] LABS: ALB/GLOB Ratio 1.3 RATIO (0.9-2.4); AST(SGOT) 21 U/L (15-37); Alanine Aminotransfer ALT/SGPT 30 U/L (16-61); Albumin, Serum 3.9 g/dL (3.2-5.0); Alkaline Phosphatase 79 U/L (45-117); Anion Gap 4 (5-15); BUN 20 mg/dL (7-18); BUN/Creat Ratio 18.5 RATIO (10-20); Calcium,Total 9.1 mg/dL (8.5-10.1); Chloride 108 mmol/L (98-107); Creatinine, Serum 1.08 mg/dL (0.70-1.30); EST Glomerular Filtration Rate 76 mL/min (>60); Est Glom Filt Rate - Afr Amer 92 mL/min (>60); Glucose 105 mg/dL (74-106); Potassium 4.2 mmol/L (3.5-5.1); Protein, Total 6.9 g/dL (6.4-8.2); Sodium Level 137 mmol/L (136-145)
[2024-01-04 16:09] LABS: Cyclosporine 129 ng/mL (100-400)
[2024-01-07 09:35] LABS: Absolute Lymphocyte Count 1.91 X10^3/uL (0.83-4.51); Absolute Neutrophil Count 2.4 X10^3/uL (2.0-7.7); Basophil# 0.01 X10^3/uL; Basophil% 0.2 % (0-1); Eosinophil# 0.05 X10^3/uL; Hematocrit 37.6 % (40-54); Hemoglobin 13.4 g/dL (13.0-16.5); Lymphocyte # 1.91 X10^3/ul (0.83-4.51); Lymphocyte % 37.2 % (19-41); Mean Corp Hgb Conc 35.6 g/dL (32-36); Mean Corpuscular Volume 101.1 fL (80-94); Mean Platelet Vol. 10.1 fl (6.2-12.0); Monocyte# 0.71 X10^3/uL; Monocyte% 13.8 % (0-10); NRBC Flagged by Analyzer 0 % (0-5); Neutrophil # 2.44 X10^3/uL (2.7-7.7); Neutrophil % 47.4 % (47-70); Platelet Count 107 K/mm3 (150-450); RBC Distribution Width CV 12.7 % (11.6-14.6); RBC Distribution Width SD 47.1 fl (35.1-43.9); Red Blood Count 3.72 M/mm3 (4.6-6.2); White Blood Count 5.1 K/mm3 (4.4-11.0)
[2024-01-07 10:42] LABS: ALB/GLOB Ratio 1.3 RATIO (0.9-2.4); AST(SGOT) 29 U/L (15-37); Alanine Aminotransfer ALT/SGPT 34 U/L (16-61); Albumin, Serum 3.9 g/dL (3.2-5.0); Alkaline Phosphatase 78 U/L (45-117); Anion Gap 5 (5-15); BUN 19 mg/dL (7-18); Calcium,Total 9.1 mg/dL (8.5-10.1); Chloride 107 mmol/L (98-107); EST Glomerular Filtration Rate 83 mL/min (>60); Est Glom Filt Rate - Afr Amer 100 mL/min (>60); Glucose 114 mg/dL (74-106); Potassium 4.5 mmol/L (3.5-5.1); Protein, Total 6.9 g/dL (6.4-8.2); Sodium Level 137 mmol/L (136-145)
[2024-01-10 13:07] LABS: Cyclosporine 167 ng/mL (100-400)
[2024-01-14 12:28] LABS: Absolute Lymphocyte Count 1.94 X10^3/uL (0.83-4.51); Absolute Neutrophil Count 2.3 X10^3/uL (2.0-7.7); Basophil# 0.02 X10^3/uL; Basophil% 0.4 % (0-1); Eosinophil# 0.04 X10^3/uL; Eosinophils% 0.8 % (0-5); Hematocrit 36.2 % (40-54); Hemoglobin 12.7 g/dL (13.0-16.5); Lymphocyte # 1.94 X10^3/ul (0.83-4.51); Lymphocyte % 38.3 % (19-41); Mean Corp Hgb Conc 35.1 g/dL (32-36); Mean Corpuscular Hgb 35.5 pg (27.0-32.0); Mean Corpuscular Volume 101.1 fL (80-94); Mean Platelet Vol. 9.6 fl (6.2-12.0); Monocyte% 13.8 % (0-10); NRBC Flagged by Analyzer 0 % (0-5); Neutrophil # 2.33 X10^3/uL (2.7-7.7); Neutrophil % 46.1 % (47-70); Platelet Count 101 K/mm3 (150-450); RBC Distribution Width CV 12.9 % (11.6-14.6); RBC Distribution Width SD 48.4 fl (35.1-43.9); Red Blood Count 3.58 M/mm3 (4.6-6.2); White Blood Count 5.1 K/mm3 (4.4-11.0)
[2024-01-14 13:31] LABS: ALB/GLOB Ratio 1.3 RATIO (0.9-2.4); AST(SGOT) 29 U/L (15-37); Alanine Aminotransfer ALT/SGPT 31 U/L (16-61); Albumin, Serum 3.9 g/dL (3.2-5.0); Alkaline Phosphatase 80 U/L (45-117); Anion Gap 2 (5-15); BUN 24 mg/dL (7-18); Calcium,Total 8.8 mg/dL (8.5-10.1); Chloride 109 mmol/L (98-107); Creatinine, Serum 1.09 mg/dL (0.70-1.30); EST Glomerular Filtration Rate 75 mL/min (>60); Est Glom Filt Rate - Afr Amer 91 mL/min (>60); Globulin 2.9 g/dL (2.2-4.2); Glucose 115 mg/dL (74-106); Potassium 4.3 mmol/L (3.5-5.1); Protein, Total 6.8 g/dL (6.4-8.2); Sodium Level 138 mmol/L (136-145)
[2024-01-17 07:07] LABS: Cyclosporine 131 ng/mL (100-400)
== END 2024-01-29 18:00 | disposition home or self-care (01) ==
LOC: LAB 11:48
PROVIDERS: PCP Family Medicine
DX: D61.9 Aplastic anemia, unspecified (principal)
CPT/HCPCS: 36415; 80053; 80158; 85025

== ENCOUNTER 2024-10-20 13:05 | Day surgery (SDC) | payer MEDICARE, SELFPAY ==
--- NOTE | 2024-10-20 13:21 | PCM.HP.BLA ---
History and Physical Date of Admission: 10/20/24 The patient is examined and there are no changes to the H&P dated 10/03/2024. He has a neoplasm of the right ear suspicious for malignancy and a pigmented lesion of the left neck. Informed consent was obtained for the procedure. He is aware of the potential for distortion in the appearance of the year following removal of the neoplasm. Patient presents for excision of the neoplasm of the right ear with frozen section and excision of a neoplasm of the left neck. Assessment & Plan Assessment/Plan (1) Neoplasm of uncertain behavior of skin of neck: (2) Neoplasm of uncertain behavior of skin of ear: PLAN: Plan For excision neoplasm of right ear with frozen section and complex closure and excision of a neoplasm of his left neck.
[2024-10-20 13:29] VITALS: BP 147/84; PULSE 87; RESP 18; TEMP 36.8; O2SAT 98; BMI 38.5
[2024-10-20 13:54] VITALS: BP 141/83; O2SAT 96; O2SAT 97; O2SAT 98; O2SAT 99
--- NOTE | 2024-10-20 14:00 | LES_PTH ---
PATIENT: SHARRI BLANK [place] [facility] [place][id number] AGE/SX: 54/M ROOM: RE10/20/[address]: Dr. Libra Dickson MD : 1970 BED: DIS: 10/20/2024 SPEC #: [id number] RECD: 10/20/24 15:16 STATUS: BEENA REYehuda #: [id number] PAULINE: 10/20/24 14:[address]: Libra Dickson DEPT: SURGICAL PATHOLOGY RECD BY: Victoriano Butler ENTERED: 10/20/24 15:16 SP TYPE: Lesion OTHR DR: Dr. Ramon Calzada MD Tissues: A - Skin of external ear, NOS B - Skin of external ear, NOS C - Skin of neck, NOS Procedures: Frozen Section (charge) Frozen Section Add'l ([facility]) Surgery Specimen Level IV HEADER OPERATION: Excision neoplasm of right ear with frozen section PRE-OP DIAGNOSIS: Neoplasm of uncertain behavior of skin of neck, Neoplasm of uncertain behavior of skin of ear TISSUE SUBMITTED: A- Neoplasm of right ear, B- Deep margin right ear, C. Lesion, left neck FROZEN SECTION DIAGNOSIS A- Skin lesion of right ear, biopsy: Basal cell carcinoma focally extending to deep margin near 3:00 o'clock. B- Skin lesion of right ear, deep margin right ear, biopsy: Negative for carcinoma. AM:freddie 10/20/24 MICROSCOPIC DIAGNOSIS A- Neoplasm of right ear, excisional biopsy: Basal cell carcinoma. Solar elastosis. See comment. B- Deep margin right ear, biopsy: Negative for carcinoma. Solar elastosis. See comment. C. Lesion, left neck, excisional biopsy: Pigmented seborrheic keratosis. Solar elastosis. 10/24/2024 COMMENT A. The tumor is present at the deep margin. B. Cartilage is also noted in the specimen. MICROSCOPIC DESCRIPTION Slides are reviewed. GROSS DESCRIPTION A. Received fresh for frozen section consultation labeled with the patient's name is a specimen designated Neoplasm right ear. The specimen consists of an ellipse of skin measuring 1.5 x 1.1 x 0.2cm. The specimen is differentially inked as follows: 12o'clock- black, 3o'clock- blue, 6o'clock-green, 9o'clock- red. The specimen is serially sectioned and totally submitted for frozen section consultation in two blocks. AM. 10/20/2024 B. Received fresh for frozen section consultation labeled with the patient's name is a specimen designated Deep margin right ear. The specimen consists of an ellipse of light galo-red soft tissue measuring 1.5 x 1.0 x 0.1cm. The specimen is differentially inked as follows: 12o'clock-black, 3o'clock- blue, 6o'clock- green, 9o'clock- yellow. The specimen is serially sectioned and totally submitted for frozen section consultation in one block. AM. 10/20/2024 C. Received is one container labeled with the patient's name and designated lesion left neck. The specimen consists of a piece of galo, white skin that measures 0.9 x 0.3 x 0.2cm. The specimen is inked, serially sectioned and totally submitted in one cassette. ANGELA rick 10/23/24 TC:0 CPT:85579u2,03179f6, 99015
[2024-10-20] MEDS: Lidocaine 1% /Epi 1:100 9 ML, Sodium Bicarbonate 1 MEQ OPERA.SITE (14:06)
[2024-10-20] MEDS: Bacitracin 500 UNITS/GM PACKET (14:27)
[2024-10-20 15:20] VITALS: BP 155/89; O2SAT 96
--- NOTE | 2024-10-20 15:24 | DCINST_ITS ---
Discharge Instructions Dressing / Incision Additional Dressing/Incision Instructions:: Keep your head elevated (recliner position) for the next 5 nights to decrease swelling and bleeding. Take the oral antibiotic (Doxycycline) 2 times a day until finished. Keep the tape on your ear dry??do not remove until seen in the office. May change the Band-Aid on your neck daily. Follow Up Care Please Follow Up With: Libra Dickson MD When: In 1 week Test Results: Test results from this visit will be discussed in further detail at your follow- up appointment, if applicable. Discharge Plan Admission Attending Provider: Libra Dickson Primary Care Provider: Ramon Calzada Instructions Print Language: Hungarian Discharge Orders/Prescriptions Prescriptions: New doxycycline hyclate 100 mg capsule 100 mg PO BID 7 Days Qty: 14 0RF No Action cyclosporine 25 mg capsule 150 mg PO BID multivitamin Tablet 1 tab PO DAILY naproxen sodium [Aleve] 220 mg capsule 220 mg PO Q12H hydrochlorothiazide 25 mg tablet 25 mg PO DAILY Qty: 30 6RF fenofibrate nanocrystallized 48 mg tablet 48 mg PO QDAY losartan 100 mg tablet 100 mg PO QDAY omega 1-oco-hyz-fish oil [Fish Oil] 300-1,000 mg capsule 1 cap PO QDAY Referrals / Follow Up: Ramon Calzada MD [Primary Care Provider] - Disposition Disposition (needs filled in before D/C Order can be placed): Home, Self Care
--- NOTE | 2024-10-20 15:32 | OP.PCM_ITS ---
Problems Associated Problem List Diagnoses (1) Neoplasm of uncertain behavior of skin of neck: (2) Neoplasm of uncertain behavior of skin of ear: Operative Report (Standard) Operative Information Date of Procedure: 10/20/24 Pre-Operative Diagnosis: Ulcerated neoplasm of right ear Pigmented lesion left neck Post-Operative Diagnosis: Same Surgery/Procedure Performed: Excision ulcerated neoplasm of right ear with frozen section x 2 (2.5 cm) Excision neoplasm left neck (1.0 cm) veterinary receptionist: No Type of Anesthesia: Local RN Documented Start/Stop Times: Operation Date: 10/20/24 14:15 Case Time Into Pre-Op 10/20/24 13:23 Out of Pre-Op 10/20/24 13:44 Into Room 10/20/24 13:49 Procedure Start 10/20/24 14:10 Procedure End 10/20/24 15:19 Out of Room 10/20/24 15:23 Procedure Start Time: 14:10 Procedure Stop Time: 15:19 Select all DRAINS/GRAFTS/IMPLANTS that apply: None Estimated Blood Loss: Minimal Specimen collected: Yes Description of specimen(s) removed: Right ear neoplasm specimens x 2 Left neck neoplasm Description of surgery: The patient presents today with an ulcerated neoplasm of his right ear posterior helix which has been there for few months and has increased in size. He also presents with a pigmented lesion of his left neck. Because of the high index of suspicion on the neoplasm of his right ear, this is scheduled with frozen section. Informed consent is obtained and the patient is marked in the preop holding area. The patient is brought to the operating room and placed on the operating room table in the supine position. The right ear and left neck are prepped and draped in the usual sterile fashion. 1% Xylocaine with epinephrine buffered w ith sodium bicarb is used for local anesthetic. The neoplasm of the right ear is initially excised and orientation maintained to be sent to pathology for frozen section. Frozen section revealed a positive deep margin and therefore a saucer like excision is again performed with a thin rim of skin along with the shave of the underlying cartilage. Orientation is maintained and it is sent to pathology for frozen section for evaluation of the deep margin. Frozen section reveals a clear margin. The site is then closed initially with a few interrupted silk suture. With approximation being possible, further refinement of the closure is done with a running chromic suture. Dermabond and Steri- Strips are placed on the site. We directed our attention to the site of the left neck and after this is anesthetized with 1% Xylocaine with epinephrine, it is excised and passed off the operative field to be sent to pathology. Hemostasis is controlled with cautery. The site is then closed with a running chromic suture. Antibiotic ointment and a Band-Aid are placed on the site. He tolerated the procedure well and was taken to the recovery area in an awake and stable condition. Needle and sponge counts are correct. Surgical Findings: BCC of right ear helix Neoplasm of left neck Complications Complications: No Admit VTE Documentation VTE Mechan Device Prophylaxis: None Reason prophylaxis not ordered: Treatment Not Indicated
== END 2024-10-20 15:48 | disposition home or self-care (01) ==
LOC: SDC 13:07 → AC 13:08
PROVIDERS: PCP Family Medicine; Referring Provider Plastic Surgery; Visit Provider Plastic Surgery
PROC: (CPT 11443; principal; 2024-10-20 14:05)
DX: D48.5 Neoplasm of uncertain behavior of skin (principal); C44.212 Basal cell carcinoma of skin of right ear and external auricular canal
CPT/HCPCS: 11443; 11421; 88305; 88331; 88332

== ENCOUNTER → 2025-04-24 | Outpatient (CLI) | payer OTHER, SELFPAY ==
--- NOTE | 2025-04-24 10:56 | RAD_ITS ---
PROCEDURE: SHOULDER MIN 2 VIEWS 04/24/2025 REASON FOR EXAM: OSTEOARTHRITIS TECHNIQUE: Four view right shoulder series and four view left shoulder series (combined dictation). COMPARISON: None. RAD/Shoulder min 2 Views IMPRESSION: [id number] bilateral acromioclavicular joint degenerative changes are see n. 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 Bilateral glenohumeral joints show no more than minimal degenerative changes, w ithout associated joint narrowing. No acute fracture or dislocation is seen. Reading Location: [place] [id number]
--- NOTE | 2025-04-24 10:56 | RAD_ITS ---
PROCEDURE: CERV SPINE 4 OR 5 VIEWS 04/24/2025 REASON FOR EXAM: OSTEOARTHITIS TECHNIQUE: CERV SPINE 4 OR 5 VIEWS COMPARISON: None FINDINGS: Incomplete visualization of the C7 vertebral body limits this evaluation. Vertebral body heights are otherwise maintained. There is mild reversal of the normal cervical lordosis. There is disc height loss with endplate osteophyte formation which is worst at C5-6 and C6-7, with at least mild osseous neural foraminal narrowing bilaterally at these levels.. Prevertebral soft tissues are unremarkable. Nuchal ligament calcification. The odontoid view is unremarkable. RAD/Cerv Spine 4 or 5 Views IMPRESSION: Moderate degenerative changes, worst at C5-6 and C6-7. Reading Location: [place]
--- NOTE | 2025-04-24 10:56 | RAD_ITS ---
PROCEDURE: LUMBAR SPINE 2 OR 3 VIEWS 04/24/2025 REASON FOR EXAM: OSTEOARTHRITIS TECHNIQUE: LUMBAR SPINE 2 OR 3 VIEWS COMPARISON: Radiographs on 12/06/2020. MRI on 08/08/2020. FINDINGS: Grade 1 anterolisthesis of L5 on S1 measuring 4.2 mm. Grade 1 retrolisthesis of L4 on L5 measuring 3.5 mm. Mildly exaggerated lumbar lordosis. Mild degenerative levoscoliosis apex at L3. Calcified atheromatous plaques of the aorta. There are diffuse spondylotic changes. Findings are demonstrated to by diffuse disc space narrowing, osteophyte formation and degenerative endplate sclerosis. There is diffuse facet joint arthropathy with secondary bilateral neural foramina narrowing. No fracture or dislocation is seen. No aggressive lytic or blastic bony lesion is noted. Moderate amount of fecal residue in the large bowels. Unremarkable metallic prostheses of the hips. RAD/Lumbar Spine 2 or 3 Views IMPRESSION: Spondylosis, progressed. [facility]
--- NOTE | 2025-04-24 10:57 | RAD_ITS ---
PROCEDURE: SHOULDER MIN 2 VIEWS 04/24/2025 REASON FOR EXAM: OSTEOARTHRITIS TECHNIQUE: Four view right shoulder series and four view left shoulder series (combined dictation). COMPARISON: None. RAD/Shoulder min 2 Views IMPRESSION: [id number] bilateral acromioclavicular joint degenerative changes are see n. 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 Bilateral glenohumeral joints show no more than minimal degenerative changes, w ithout associated joint narrowing. No acute fracture or dislocation is seen. Reading Location: [place] [address]
== END | disposition home or self-care (01) ==
LOC: RAD 10:54
PROVIDERS: PCP Family Medicine; Referring Provider Chiropractor; Visit Provider Chiropractor
DX: M19.012 Primary osteoarthritis, left shoulder (principal); M19.011 Primary osteoarthritis, right shoulder; M47.817 Spondylosis without myelopathy or radiculopathy, lumbosacral region; M47.812 Spondylosis without myelopathy or radiculopathy, cervical region
CPT/HCPCS: 72050; 72100; 73030

== ENCOUNTER → 2025-07-12 | Outpatient (CLI) | payer MEDICARE, SELFPAY ==
--- NOTE | 2025-07-12 | LES_PTH ---
PATIENT: SHARRI BLANK LOC: [facility] U#:[id number] AGE/SX: 55/M ROOM: RE07/12/[address]: Dr. Sebastian Francois MD : 1970 BED: DIS: 07/12/2025 SPEC #: [id number] RECD: 07/12/25 13:30 STATUS: BEENA ALLYN #: [id number] PAULINE: 07/12/25 00:[address]: Sebastian Francois DEPT: SURGICAL PATHOLOGY RECD BY: Victoriano Butler ENTERED: 07/12/25 14:23 SP TYPE: Lesion OTHR DR: Dr. Ramon Calzada MD Tissues: A - Skin of face, NOS Procedures: Surgery Specimen Level IV HEADER OPERATION: Left cheek lesion biopsy PRE-OP DIAGNOSIS: Left cheek lesion TISSUE SUBMITTED: A- Left cheek lesion MICROSCOPIC DIAGNOSIS A. Skin, cheek, left, biopsy: * Squamous cell carcinoma (See note) Note: The lesion extends to the peripheral and deep edges of resection MICROSCOPIC DESCRIPTION Slides are reviewed. GROSS DESCRIPTION A. Received in formalin labeled with the patient's name and date of . Designated as left cheek lesion is a 0.7 x 0.3 cm galo-white skin ellipse devoid of orientation, excised to a maximum depth of 0.3 cm. Eccentrically on the epidermal surface is a 0.2 x 0.2 cm galo apparent scab abutting the peripheral edge. The resection margin is inked black. The specimen is trisected and entirely submitted in 1 cassette. [place] 07/12/2025 CPT:56624
== END | disposition home or self-care (01) ==
LOC: LABSPEC 13:32
PROVIDERS: PCP Family Medicine; Referring Provider Surgery Plastic and Reconstructive Surgery; Visit Provider Surgery Plastic and Reconstructive Surgery
DX: C44.329 Squamous cell carcinoma of skin of other parts of face (principal)
CPT/HCPCS: 88305